=== PATIENT | female | born 1955 | race Caucasian/White ===

== ENCOUNTER → 2017-08-20 | Outpatient (CLI) | payer OTHER ==
[~2017-08-20] MED LIST: ASP325T PO; ASPI-875 PO; DEXL60CA PO; DIGO250T96 PO; DRON400T2 PO; HYDR-34 PO; LOSA50TA6 PO; METO100T5 PO; METO50TA7 PO; NAPR220C11 PO; NITR-65 PO; PANT40SU PO; PNT40TEC PO; RIVA20TA2 PO; VNL75T PO
== END ==
LOC: CARD 08:35
PROVIDERS: ATTEND Physician Assistant
DX: I48.0 Paroxysmal atrial fibrillation (principal); I65.23 Occlusion and stenosis of bilateral carotid arteries; I25.10 Atherosclerotic heart disease of native coronary artery without angina pectoris; I10 Essential (primary) hypertension
CPT/HCPCS: 93306

== ENCOUNTER 2018-04-15 06:48 | Day surgery (SDC) | payer OTHER ==
[~2018-04-15] VITALS: Ht 167.6 cm; Wt 79.4 kg
[2018-04-15] VITALS (14 sets, daily range): BP systolic 114–137; BP diastolic 61–96
[2018-04-15] MEDS ORDERED: NS IV 1000 ML 1,000 ML ONE (06:55)
[2018-04-15] MEDS ORDERED: LIDOCAINE 2% VISCOUS 15 ML UDC ONE (06:55)
[2018-04-15] MEDS ORDERED: NS IV 1000 ML 1,000 ML IV SCH (07:03)
--- NOTE | 2018-04-15 07:22 | Diagnostic Imaging Report ---
INDICATION: Preoperative evaluation prior to echocardiogram and electrical cardioversion. Portable upright AP view of the chest is obtained. Comparison is made to study of 01/29/2014. FINDINGS: Heart size and pulmonary vascularity are within normal limits, and the lungs are clear, bilaterally. IMPRESSION: Unremarkable chest. Dictated by: Dictated on workstation # [id number]
[2018-04-15 07:34] LABS: HEMOGLOBIN 13.3 G/DL (11.5-16.0); MEAN PLATELET VOLUME 9.7 FL (7.4-10.4); RED BLOOD COUNT 3.94 10^6/uL (4.35-5.85); RED CELL DISTRIBUTION WIDTH 12.4 % (10.0-14.5); WHITE BLOOD COUNT 4.5 10^3/uL (4.3-11.0)
[2018-04-15 07:47] LABS: INR 1.2 (0.8-1.4); PROTHROMBIN TIME PATIENT 15.3 SEC (12.2-14.7)
[2018-04-15] MEDS ORDERED: APIX5TAB PO (07:48)
[2018-04-15] MEDS ORDERED: METO100T6 PO (07:48)
[2018-04-15 07:56] LABS: ALBUMIN 4.1 GM/DL (3.2-4.5); BILIRUBIN,TOTAL 0.6 MG/DL (0.1-1.0); CALCIUM 9.1 MG/DL (8.5-10.1); CREATININE SERUM 1.08 MG/DL (0.60-1.30); POTASSIUM 3.6 MMOL/L (3.6-5.0); TOTAL PROTEIN 6.4 GM/DL (6.4-8.2)
[2018-04-15 07:56] LABS: CLARITY,URINE CLEAR; COLOR,URINE YELLOW; GLUCOSE, URINE (UA) NEGATIVE (NEGATIVE); KETONES,URINE 1+ (NEGATIVE); LEUKOCYTE ESTERASE ,URINE 2+ (NEGATIVE); NITRITE,URINE POSITIVE (NEGATIVE); PH,URINE 5 (5-9); PROTEIN,URINE 3+ (NEGATIVE); UROBILINOGEN,URINE 1 MG/DL (NORMAL)
[2018-04-15 08:08] LABS: BACTERIA,URINE FEW /HPF; BILIRUBIN,URINE 2+ (NEGATIVE)
[2018-04-15] MEDS ORDERED: proPOfol 200 MG/20 ML (DIPRIVAN) VIAL IV ONE ×2 (08:08→08:10)
[2018-04-15] MEDS ORDERED: MIDAZOLAM 2 MG/2 ML (VERSED) VIAL ONE (08:08)
--- NOTE | 2018-04-15 08:09 | Cardiac Procedure Note-CS/ASA ---
Pre-Procedure Note Pre-Op Procedure Note H&P Reviewed The H&P was reviewed, patient examined and no changes noted. Date H&P Reviewed: Apr 15, 2018 Time H&P Reviewed: 08:08 Conscious Sedation Pre-Proced Time Reviewed: 08:08 ASA Class: 3 Airway Mallampati Classification: (torres martinez appropriate class) I. II. III, IV Lungs Heart ASA score ASA 1: a normal healthy patient ASA 2: a patient with a mild systemic disease (mid diabetes, controlled hypertension, obesity x ASA 3: a patient with a severe systemic disease that limits activity (angina , COPD, prior Myocardial infarction) ASA 4: a patient with an incapacitating disease that is a constant threat to life (CHF, renal failure) ASA 5: a moribund patient not expected to survive 24 hrs. (ruptured aneurysm) ASA 6: a declared brain patient whose organs are being harvested. For emergent operations, add the letter E after the classification Grade 3 Sedation Plan: Analgesia, Amnesia, Plan communicated to team members, Discussed options with patient/fam, Discussed risks with patient/fam Note The patient is an appropriate candidate to undergo the planned procedure, sedation, and anesthesia. The patient immediately re-assessed prior to indication. GLENNY GUTIERREZ MD Apr 15, 2018 08:08
--- NOTE | 2018-04-15 08:43 | Cardioversion ---
Cardioversion PROCEDURE PHYSICIAN: Glenny Verduzco DATE OF PROCEDURE: 04/15/18 DIRECT EXTERNAL ELECTRICAL CARDIOVERSION: Indications: Atrial Fibrillation Preoperative diagnoses: Atrial Fibrillation Postoperative diagnosis: Sinus rhythm, Successful Electrical Cardioversion Anesthesia: By Anesthesia services Complications: None Procedure Details: The patient was brought the clinical lab clerk after informed consent was taken, all the risks and complications were explained including the risk of stroke. Electrical cardioversion was carried out with anesthesia support with propofol. 200 joules of synchronized shock was delivered through external patches which promptly restored sinus rhythm. The patient tolerated the procedure well. Conclusions: Successful cardioversion Final Diagnosis: Atrial Fibrillation Hypertension Hyperlipidemia Palpitations GLENNY VERDUZCO MD Apr 15, 2018 08:43
--- NOTE | 2018-04-15 08:44 | Anesthesia-Procedure Note ---
Procedures/Interventions Procedure Start/Stop/Diagnosis Date of Procedure: Apr 15, 2018 Start Time: 08:14 Referring Physician: rossana Preprocedural Diagnosis: a fib Stop Time: 08:24 ZENY/Cardioversion Anesthesia Type: MAC ASA Class: 2 Medications Versed 2 mg total and Propofol 50 mg IV total for ZENY/Cardioversion Monitors and Equipment: Continuous EKG, End Tidal CO2 FAUSTO GAN CRNA Apr 15, 2018 08:44
[2018-04-15] MEDS ORDERED: LIDOCAINE 2% VISCOUS 15 ML UDC PO ONE (09:15)
--- OUTSIDE RECORDS SUMMARY | 2018-04-15 13:40 | XMS REPORT | Continuity of Care Document ---
Author Author [facility] Organization [facility] Address Unknown Phone Unavailable Allergies Active Description Code Type Severity Reaction Onset Reported/Identified Relationship to Patient Clinical Status Yes lisinopril [id number] Drug Allergy Unknown COUGH 01/29/2014 Medications Medication Packaging Start Date Stop Date Route Dosage Sig VENLAFAXINE HCL ER 12/29/2016 Oral VENLAFAXINE HCL ER 02/24/2018 Oral Problems Date Dx Coded Attending Type Code Diagnosis Diagnosed By 09/19/2010 Ot V57.21 09/19/2010 Ot V58.49 10/30/2012 Ot 276.8 HYPOPOTASSEMIA 10/30/2012 Ot 311 DEPRESSIVE DISORDER NEC 10/30/2012 Ot 401.9 HYPERTENSION NOS 10/30/2012 Ot 427.31 ATRIAL FIBRILLATION 10/30/2012 Ot 530.81 ESOPHAGEAL REFLUX 10/30/2012 Ot 785.1 PALPITATIONS 11/16/2012 Ot 427.31 ATRIAL FIBRILLATION 12/02/2012 Ot 311 DEPRESSIVE DISORDER NEC 12/02/2012 Ot 401.9 HYPERTENSION NOS 12/02/2012 Ot 414.01 CORONARY ATHEROSCLEROSIS OF [place] CORON 12/02/2012 Ot 427.31 ATRIAL FIBRILLATION 12/02/2012 Ot 785.0 TACHYCARDIA NOS 12/02/2012 Ot 785.1 PALPITATIONS 12/02/2012 Ot 786.59 CHEST PAIN NEC 12/02/2012 Ot V58.66 LONG-TERM ( CURRENT) USE OF ASPIRIN 12/02/2012 Ot V58.69 OTH MED,LT, CURRENT USE 12/30/2012 YURI BARRY Ot 327.23 OBSTRUCTIVE SLEEP APNEA (ADULT) (PEDIATR 02/08/2013 Ot 427.31 ATRIAL FIBRILLATION 02/08/2013 Ot 785.1 PALPITATIONS 03/14/2013 XAVI STEWART MD Ot 530.11 REFLUX ESOPHAGITIS 03/14/2013 XAVI STEWART MD Ot 535.40 OTH SPECIFIED GASTRITIS,W/O MENTION OF H 03/14/2013 XAVI STEWART MD Ot 553.3 DIAPHRAGMATIC HERNIA 03/14/2013 TERRY ROUSE, XAVI Ot V12.79 PERSONAL HISTORY OTH SPEC DIGESTIVE SYST 03/14/2013 TERRY ROUSE, XAVI Ot V67.09 SURGERY FOLLOW-UP, OTHER SURGERY 11/01/2013 ROWENA ROUSE, RC Corrales Ot 311 DEPRESSIVE DISORDER NEC 11/01/2013 ROWENA ROUSE, RC [place] Ot 401.9 HYPERTENSION NOS 11/01/2013 ROWENA ROUSE, RC [place] Ot 427.31 ATRIAL FIBRILLATION 11/01/2013 ROWENA ROUSE, RC [place] Ot 717.40 DERANG LAT MENISCUS NOS 11/01/2013 ROWENA ROUSE, RC [place] Ot 717.7 CHONDROMALACIA PATELLAE 11/01/2013 ROWENA ROUSE, RC [place]es Ot 733.92 CHONDROMALACIA 11/01/2013 ROWENA ROUSE, RC [place] Ot V57.1 PHYSICAL THERAPY NEC 11/01/2013 ROWENA ROUSE, RC [place] Ot V74.8 SCREEN-BACTERIAL DIS NEC 01/29/2014 RANDAL DO, TRICIA K Ot 276.51 DEHYDRATION 01/29/2014 RANDAL DO, TRICIA K Ot 276.9 ELECTROLYT/FLUID DIS NEC 01/29/2014 RANDAL DO, TRICIA K Ot 311 DEPRESSIVE DISORDER NEC 01/29/2014 RANDAL DO, TRICIA K Ot 401.9 HYPERTENSION NOS 01/29/2014 RANDAL DO, TRICIA K Ot 427.31 ATRIAL FIBRILLATION 01/29/2014 RANDAL DO, TRICIA K Ot 530.81 ESOPHAGEAL REFLUX 01/29/2014 RANDAL DO, TRICIA K Ot 599.0 URIN TRACT INFECTION NOS 01/29/2014 RANDAL DO, TRICIA K Ot 780.79 OTH MALAISE FATIGUE 09/18/2014 ROWENA ROUSE, RC [place] Ot 719.66 09/18/2014 ROWENA ROUSE, RC [place] Ot V45.89 09/18/2014 ROWENA ROUSE, RC [place] Ot V57.1 09/24/2014 ROWENA ROUSE, RC [place] Ot 719.66 09/24/2014 ROWENA ROUSE, RC [place] Ot V45.89 09/24/2014 ROWENA ROUSE, RC [place] Ot V57.1 10/11/2014 ROWENA ROUSE, RC [place] Ot 719.66 JOINT SYMPTOM NEC-L/LEG 10/11/2014 ROWENA ROUSE, RC [place]es Ot V45.89 POSTSURGICAL STATES NEC 10/11/2014 ROWENA ROUSE, CR [place] Ot V57.1 PHYSICAL THERAPY NEC 12/21/2014 Ot 427.31 12/21/2014 Ot 427.31 12/21/2014 Ot 785.1 12/21/2014 TERRY ROUSE, XAVI Ot V72.84 12/21/2014 BRENDA ROUSE, GLENNY Rodriguez Ot 285.9 12/21/2014 MAXIMO ROUSE, MARIA ISABEL [place] Ot 401.9 12/21/2014 ROWENA ROUSE, RC [place] Ot 717.3 12/21/2014 ROWENA ROUSE, RC [place] Ot V72.84 12/21/2014 ROSA M PA, BENITA K Ot 278.00 12/21/2014 ROSA M PA, BENITA K Ot 327.23 12/21/2014 ROSA M PA, BENITA K Ot 401.9 12/21/2014 ROSA M PA, BENITA K Ot 414.00 12/21/2014 ROSA M PA, BENITA K Ot 427.31 01/18/2015 BRENDA ORUSE, GLENNY J Ot 278.00 01/18/2015 BRENDA ROUSE, GLENNY J Ot 401.9 01/18/2015 BRENDA ROUSE, GLENNY Rodriguez Ot 414.00 01/18/2015 BRENDA ROUSE, GLENNY J Ot 427.69 01/18/2015 BRENDA ROUSE, GLENNY Rodriguez Ot 578.9 05/01/2015 Ot 427.31 05/01/2015 Ot 427.31 05/01/2015 Ot 785.1 05/01/2015 TERRY ROUSE, XAVI Ot V72.84 05/01/2015 BRENDA ROUSE, GLENNY Rodriguez Ot 285.9 05/01/2015 MAXIMO ROUSE, MARIA ISABEL P Ot 401.9 05/01/2015 ROWENA ROUSE, RC [place] Ot 717.3 05/01/2015 ROWENA ROUSE, RC [place] Ot V72.84 05/01/2015 ROSA M PA, BENITA K Ot 278.00 05/01/2015 ROSA M PA, BENITA K Ot 327.23 05/01/2015 ROSA M PA, BENITA K Ot 401.9 05/01/2015 GAUDENCIO-JUANJO PA, BENITA K Ot 414.00 05/01/2015 ROSA M PA, BENITA K Ot 427.31 05/01/2015 BRENDA ROUSE, GLENNY Rodriguez Ot 278.00 05/01/2015 BRENDA ROUSE, GLENNY Rodriguez Ot 401.9 05/01/2015 BRENDA ROUSE, GLENNY J Ot 414.00 05/01/2015 BRENDA ROUSE, GLENNY Rodriguez Ot 427.69 05/01/2015 BRENDA ROUSE, GLENNY Rodriguez Ot 578.9 10/02/2015 Ot 427.31 10/02/2015 Ot 427.31 10/02/2015 Ot 785.1 10/02/2015 TERRY ROUSE, TAKAAKI Ot V72.84 10/02/2015 BRENDA ROUSE, GLENNY Rodriguez Ot 285.9 10/02/2015 MAXIMO ROUSE, MARIA ISABEL P Ot 401.9 10/02/2015 ROWENA ROUSE, RC P Ot 717.3 10/02/2015 ROWENA ROUSE, RC P Ot V72.84 10/02/2015 ROSA M PA, BENITA K Ot 278.00 10/02/2015 ROSA M PA, BENITA K Ot 327.23 10/02/2015 ROSA M PA, BENITA K Ot 401.9 10/02/2015 ROSA M PA, BENITA K Ot 414.00 10/02/2015 ROSA M PA, BENITA K Ot 427.31 10/02/2015 BRENDA ROUSE, GLENNY Rodriguez Ot 278.00 10/02/2015 BRENDA ROUSE, GLENNY Rodriguez Ot 401.9 10/02/2015 BRENDA ROUSE, GLENNY Rodriguez Ot 414.00 10/02/2015 BRENDA ROUSE, GLENNY Rodriguez Ot 427.69 10/02/2015 BRENDA ROUSE, GLENNY Rodriguez Ot 578.9 10/02/2015 BRENDA ROUSE, GLENNY Rodriguez Ot E66.9 OBESITY, UNSPECIFIED 10/02/2015 GLENNY GUTIERREZ MD Ot E78.5 HYPERLIPIDEMIA, UNSPECIFIED 10/02/2015 GLENNY GUTIERREZ MD Ot G47.33 OBSTRUCTIVE SLEEP APNEA (ADULT) (PEDIATR 10/02/2015 GLENNY GUTIERREZ MD Ot I10 ESSENTIAL (PRIMARY) HYPERTENSION 10/02/2015 GLENNY GUTIERREZ MD Ot I25.10 ATHSCL HEART DISEASE OF [place] CORONARY 10/02/2015 GLENNY GUTIERREZ MD Ot I48.0 PAROXYSMAL ATRIAL FIBRILLATION 10/02/2015 GLENNY GUTIERREZ MD Ot I49.3 VENTRICULAR PREMATURE DEPOLARIZATION 10/02/2015 GLENNY GUTIERREZ MD Ot Z68.35 BODY MASS INDEX (BMI) 35.0-35.9, ADULT 10/02/2015 GLENNY GUTIERREZ MD Ot Z79.899 OTHER MCC (CURRENT) DRUG THERAPY 10/18/2015 Ot 427.31 10/18/2015 Ot 427.31 10/18/2015 Ot 785.1 10/18/2015 TERRY ROUSE, XAVI Ot V72.84 10/18/2015 GLENNY GUTIERREZ MD Ot 285.9 10/18/2015 MAXIMO ROUSE, MARIA ISABEL [place] Ot 401.9 10/18/2015 ROWENA ROUSE, RC P Ot 717.3 10/18/2015 ROWENA ROUSE, RC [place] Ot V72.84 10/18/2015 ROSA M PA, BENITA K Ot 278.00 10/18/2015 ROSA M PA, BENITA K Ot 327.23 10/18/2015 ROSA M PA, BENITA K Ot 401.9 10/18/2015 ROSA M NGUYEN, BENITA K Ot 414.00 10/18/2015 ROSA M NGUYEN, BENITA K Ot 427.31 10/18/2015 GLENNY GUTIERREZ MD Ot 278.00 10/18/2015 BRENDA ROUSE, GLENNY Rodriguez Ot 401.9 10/18/2015 BRENDA ROUSE, GLENNY Rodriguez Ot 414.00 10/18/2015 GLENNY GUTIERREZ MD Ot 427.69 10/18/2015 GLENNY GUTIERREZ MD Ot 578.9 12/20/2015 GLENNY GUTIERREZ MD Ot E66.9 OBESITY, UNSPECIFIED 12/20/2015 GLENNY GUTIERREZ MD Ot E78.5 HYPERLIPIDEMIA, UNSPECIFIED 12/20/2015 GLENNY GUTIERREZ MD Ot G47.33 OBSTRUCTIVE SLEEP APNEA (ADULT) (PEDIATR 12/20/2015 GLENNY GUTIERREZ MD Ot I10 ESSENTIAL (PRIMARY) HYPERTENSION 12/20/2015 GLENNY GUTIERREZ MD Ot I25.10 ATHSCL HEART DISEASE OF [place] CORONARY 12/20/2015 GLENNY GUTIERREZ MD Ot I48.0 PAROXYSMAL ATRIAL FIBRILLATION 12/20/2015 GLENNY GUTIERREZ MD Ot I49.3 VENTRICULAR PREMATURE DEPOLARIZATION 12/20/2015 GLENNY GUTIERREZ MD Ot Z68.35 BODY MASS INDEX (BMI) 35.0-35.9, ADULT 12/20/2015 GLENNY GUTIERREZ MD, Ot Z79.899 OTHER MCC (CURRENT) DRUG THERAPY 02/14/2016 XAVI STEWART MD Ot R10.9 UNSPECIFIED ABDOMINAL PAIN 02/14/2016 XAVI STEWART MD Ot R11.2 NAUSEA WITH VOMITING, UNSPECIFIED 03/05/2016 XAVI STEWART MD Ot R10.9 UNSPECIFIED ABDOMINAL PAIN 03/05/2016 XAVI STEWART MD Ot R11.2 NAUSEA WITH VOMITING, UNSPECIFIED 08/13/2017 RC GUAMAN MD Ot M54.16 RADICULOPATHY, LUMBAR REGION 08/13/2017 XAVI STEWART MD Ot R10.9 UNSPECIFIED ABDOMINAL PAIN 08/13/2017 XAVI STEWART MD Ot R11.2 NAUSEA WITH VOMITING, UNSPECIFIED 08/17/2017 RC GUAMAN MD Ot M54.16 RADICULOPATHY, LUMBAR REGION 08/17/2017 XAVI STEWART MD Ot R10.9 UNSPECIFIED ABDOMINAL PAIN 08/17/2017 XAVI STEWART MD Ot R11.2 NAUSEA WITH VOMITING, UNSPECIFIED 08/19/2017 Ot 427.31 ATRIAL FIBRILLATION 08/19/2017 Ot 427.31 ATRIAL FIBRILLATION 08/19/2017 Ot 785.1 PALPITATIONS 08/19/2017 XAVI STEWART MD Ot V72.84 EXAM PRE-OPERATIVE NOS 08/19/2017 GLENNY GUTIERREZ MD Ot 285.9 ANEMIA NOS 08/19/2017 MARIA ISABEL MARSH MD Ot 401.9 HYPERTENSION NOS 08/19/2017 RC GUAMAN MD Ot 717.3 DERANG MED MENISCUS NEC 08/19/2017 RC GUAMAN MD Ot V72.84 EXAM PRE-OPERATIVE NOS 08/19/2017 BENITA MCADAMS Ot 278.00 OBESITY, NOS 08/19/2017 BENITA MCADAMS Ot 327.23 OBSTRUCTIVE SLEEP APNEA (ADULT) (PEDIATR 08/19/2017 BENITA MCADAMS Ot 401.9 HYPERTENSION NOS 08/19/2017 BENITA MCADAMS Ot 414.00 CORON ATHEROSCLER NOS TYPE VESSEL, NATIV 08/19/2017 BENITA MCADAMS Ot 427.31 ATRIAL FIBRILLATION 08/19/2017 GLENNY GUTIERREZ MD Ot 278.00 OBESITY, NOS 08/19/2017 GLENNY GUTIERREZ MD Ot 401.9 HYPERTENSION NOS 08/19/2017 GLENNY GUTIERREZ MD Ot 414.00 CORON ATHEROSCLER NOS TYPE VESSEL, NATIV 08/19/2017 GLENNY GUTIERREZ MD Ot 427.69 PREMATURE BEATS NEC 08/19/2017 GLENNY GUTIERREZ MD Ot 578.9 GASTROINTEST HEMORR NOS 09/16/2017 BENITA MCADAMS Ot I10 ESSENTIAL (PRIMARY) HYPERTENSION 09/16/2017 BENITA MCADAMS Ot I25.10 ATHSCL HEART DISEASE OF [place] CORONARY 09/16/2017 BENITA MCADAMS Ot I48.0 PAROXYSMAL ATRIAL FIBRILLATION 09/16/2017 BENITA MCADAMS Ot I65.23 OCCLUSION AND STENOSIS OF [place]AL [place] Procedures There is no data. Results There is no data. Encounters ACCT No. Visit Date/Time Discharge Status Pt. Type Provider Facility Loc./Unit Complaint [id number] 03/28/2018 10:40:00 03/28/2018 23:59:59 CLS Preadmit DALLAS GONZALEZ APRN [facility] RAD SCREENING MAMMOGRAM [id number] 08/20/2017 08:35:00 08/20/2017 23:59:59 CLS Outpatient BENITA MCADAMS [facility] CARD AF [id number] 02/12/2016 09:43:00 02/12/2016 23:59:59 CLS Outpatient XAVI STEWART MD [facility] LAB ABDOMINAL PAIN,NAUSEA, VOMITING [id number] 10/18/2015 13:30:00 10/18/2015 23:59:59 CLS Outpatient RC GUAMAN MD [facility] RAD LUMBAR RADICULOPATHY [id number] 10/02/2015 12:47:00 10/02/2015 13:57:00 DIS Outpatient GLENNY GUTIERREZ MD [facility] PAROXYSMAL ATRIAL FIBRILLATION [id number] 12/21/2014 11:05:00 12/21/2014 23:59:59 CLS Outpatient GLENNY GUTIERREZ MD [facility] CARD HX OF A-FIB,HTN [id number] 10/11/2014 13:34:00 10/11/2014 14:53:00 DIS Outpatient RC GUAMAN MD [facility] REHAB LT KNEE WEAKNESS S/ P CHONDROPLASTY [id number] 01/29/2014 11:10:00 01/29/2014 14:35:00 DIS Emergency TRICIA TEE DO [facility] ER WEAKNESS [id number] 11/01/2013 09:00:00 11/01/2013 23:59:59 CLS Outpatient BENITA MCADAMS [facility] LAB AF,CORONARY ARTERY DI,HTN,SHAYNE,OBESITY [id number] 11/01/2013 08:56:00 11/01/2013 15:11:00 DIS Outpatient RC GUAMAN MD [facility] LET KNEE TORN MENISCUS [id number] 10/26/2013 09:49:00 10/26/2013 23:59:59 CLS Outpatient RC GUAMAN MD [facility] PREOP LEFT TORN MEDIAL MENISCUS [id number] 07/24/2013 08:31:00 07/24/2013 23:59:59 CLS Outpatient MARIA ISABEL MARSH MD [facility] LAB HTN [id number] 04/19/2013 11:44:00 04/19/2013 23:59:59 CLS Outpatient GLENNY GUTIERREZ MD [facility] LAB ANEMIA [id number] 03/14/2013 08:46:00 03/14/2013 12:00:00 DIS Outpatient XAVI STEWART MD [facility] POST PROCEDURE CHECK FOR GI BLEED CLIP PLACEMENT [id number] 03/13/2013 15:28:00 03/13/2013 23:59:59 CLS Outpatient XAVI STEWART MD [facility] PREOP GERD [id number] 12/29/2012 20:07:00 12/30/2012 06:35:00 DIS Outpatient YURI BARRY [facility] SLEEP SHAYNE,SNORING [id number] 12/21/2014 11:05:00 Document Registration [id number] 02/09/2013 09:00:00 Document Registration [id number] 11/30/2012 03:10:00 Document Registration [id number] 11/16/2012 14:13:00 Document Registration [id number] 11/16/2012 02:09:00 Document Registration [id number] 11/10/2012 08:46:00 Document Registration [id number] 10/29/2012 00:45:00 Document Registration [id number] 12/21/2014 11:05:48 ACT Document Registration [id number] 12/24/2017 16:43:06 Document Registration
--- OUTSIDE RECORDS SUMMARY | 2018-04-15 13:40 | XMS REPORT | Clinical Summary ---
Author Author [facility] Organization [facility] Address Unknown Phone Unavailable Care Team Providers Care Belt Maker Name Role Phone Xuan Bradley MD PCP Source Comments Some departments are not documenting in the electronic medical record. If you do not see the information that you expected, contact Release of Information in the Health Information Management department at [phone] for further assistance in locating additional records.[facility] Allergies Active Allergy Reactions Severity Noted Date Comments Lisinopril COUGH 07/14/2013 Current Medications Prescription Sig. Disp. Refills Start End Date Status Date metoprolol XL (TOPROL XL) Take 100 mg by mouth Active 100 mg tablet twice daily. dronedarone (MULTAQ) 400 Take 400 mg by mouth Active mg tablet twice daily with meals. aspirin 325 mg tablet Take 325 mg by mouth Active daily. dexlansoprazole (+) Take 60 mg by mouth Active (DEXILANT) 60 mg capsule daily. venlafaxine XR (EFFEXOR Take 75 mg by mouth Active XR) 75 mg capsule daily. acetaminophen SR(+) Take 1,300 mg by mouth as Active (TYLENOL ARTHRITIS) 650 Needed. mg tablet losartan (COZAAR) 50 mg Take 1 Tab by mouth 30 Tab 6 07/14/20 Active tablet daily. 13 Active Problems Problem Noted Date Atrial fibrillation (HCC) 06/29/2013 Overview: 11/17/12 - ([facility]): LV normal size with mild left ventricular hypertrophy at the base of the septum giving the septum a sigmoid shape. EF 65%. Left atrium dilated. No clot or thrombus were seen. Mild mitral and tricuspid regurgitation. Est PAP 15mmHg. 11/30/12 - Admitted to [facility] ([place], [place]) for palpitations and chest pressure. Noted to be in a-fib with RVR. Multaq started. 12/01/12 - Lexiscan Stress Test ([facility]): Mild reversible ischemia at the inferior wall, inferolateral wall. 12/02/12 - Heart Cath: Mild irregularity at the distal right coronary artery. No obstructive disease in the coronary system. Hypertension 06/29/2013 GI bleed 06/29/2013 Overview: -February 2013 -Evaluated by GI. Noted to have AVM in duodenum. -'Acute AVM's were clipped' per pt ([place]) Obstructive sleep apnea on CPAP 06/29/2013 Family History Medical History Relation Name Comments Hypertension Brother Hypertension Brother Obesity Brother Hypertension Brother Obesity Brother Diabetes Father Atrial Fibrillation Mother Relation Name Status Comments Brother Alive Brother Alive Brother Alive Father Alive Mother Social History Tobacco Use Types Packs/Day Years Used Date Never Smoker Smokeless Tobacco: Never Used Alcohol Use Drinks/Week oz/Week Comments Yes 1 Standard 0.5 drinks or equivalent Sex Assigned at Date Recorded Not on file Last Filed Vital Signs Vital Sign Reading Time Taken Blood Pressure 146/108 06/29/2013 9:29 AM CDT Pulse 61 06/29/2013 9:28 AM CDT Temperature - - Respiratory Rate - - Oxygen Saturation - - Inhaled Oxygen - - Concentration Weight 98 kg (216 lb) 06/29/2013 9:28 AM CDT Height 167.6 cm (5' 6") 06/29/2013 9:28 AM CDT Body Mass Index 34.86 06/29/2013 9:28 AM CDT Plan of Treatment Health Maintenance Due Date Last Done Comments HEPATITIS C SCREENING 1953 PHYSICAL (COMPREHENSIVE) 1960 EXAM PERTUSSIS VACCINE 1964 HIV SCREENING 1968 TETANUS VACCINE 1970 CERVICAL CANCER SCREENING 1983 BREAST CANCER SCREENING 1993 COLORECTAL CANCER 2003 SCREENING SHINGLES RECOMBINANT 2003 VACCINE (1 of 2) INFLUENZA VACCINE 05/30/2018 Results Not on filefrom Last 3 Months
--- NOTE | 2018-04-15 13:57 | Anesthesia-General Post-Op ---
MAC Post Op Complications Complications None Follow Up Care/Instructions Patient Instructions None needed. Anesthesiology Discharge Order Discharge Order Patient is doing well, no complaints, stable vital signs, no apparent adverse anesthesia problems. No complications reported per nursing. FAUSTO GAN CRNA Apr 15, 2018 13:57
== END 2018-04-15 11:05 | disposition home or self-care (01) ==
LOC: CATH 06:48 → SURG 09:07 → CATH 11:05
PROVIDERS: ATTEND Internal Medicine Cardiovascular Disease
DX: I48.0 Paroxysmal atrial fibrillation (principal); I10 Essential (primary) hypertension; E78.5 Hyperlipidemia, unspecified; R00.2 Palpitations; I49.3 Ventricular premature depolarization; I65.23 Occlusion and stenosis of bilateral carotid arteries; G47.30 Sleep apnea, unspecified; I25.10 Atherosclerotic heart disease of native coronary artery without angina pectoris; I49.1 Atrial premature depolarization; Z79.01 Long term (current) use of anticoagulants; Z79.899 Other long term (current) drug therapy
CPT/HCPCS: 36415; 71045; 80053; 80061; 81000; 85027; 85610; 85730; 87077; 87081; 87088; 87186; 92960; 93005; 93312; 93320; 93325

== ENCOUNTER → 2018-05-11 | Outpatient (CLI) | payer OTHER ==
[~2018-05-11] VITALS: Ht 167.6 cm; Wt 78.9 kg
[~2018-05-11] MED LIST changes: +APIX5TAB PO; +CATHETER FLUSH 10 ML SYR IV PRN; +METO100T6 PO; +REGADENOSON 0.4 MG/5 ML SYR (LEXISCAN) IV ONE
[2018-05-11 14:05] VITALS: BP 130/86
--- NOTE | 2018-05-11 21:12 | STRESS TEST ---
DATE OF SERVICE: 05/11/2018 LEXISCAN MYOVIEW STRESS TEST REPORT Baseline heart rate is 58, baseline blood pressure 156/97. Baseline EKG is sinus rhythm with no ischemic changes. SUMMARY: The patient was injected with 10.51 mCi of technetium-99 Myoview and the resting images were obtained. Then, the patient received 0.4 mg of Lexiscan followed by 30.2 mCi of technetium-99 Myoview. Throughout the test, there were no EKG changes. The resting and stress images were reviewed and compared in the short axis, horizontal long axis, and vertical long axis views. Review of the images showed good radiotracer uptake with no significant ischemia or infarction. SSS is 1, SDS 2, TID value of 1.1. On the gated images, the left ventricle appeared to be in normal size with normal contractility. Calculated ejection fraction 76%. CONCLUSION: 1. The patient tolerated Lexiscan well. 2. No significant ischemia or infarction on SPECT images. 3. Normal left ventricular size with normal contractility. Calculated ejection fraction 76%. Job ID: [id number] DocumentID: [id number] Dictated Date: 05/11/2018 16:55:30 Wrecking Car Driver Date: 05/11/2018 21:12:00 Dictated By: GLENNY GUTIERREZ MD
== END ==
LOC: CARD 11:51
PROVIDERS: ATTEND Internal Medicine Cardiovascular Disease
DX: I25.10 Atherosclerotic heart disease of native coronary artery without angina pectoris (principal); R06.09 Other forms of dyspnea; I10 Essential (primary) hypertension; I49.3 Ventricular premature depolarization; R00.0 Tachycardia, unspecified
CPT/HCPCS: 78452; 93017

== ENCOUNTER → 2018-05-25 | Outpatient (CLI) | payer OTHER ==
[~2018-05-25] MED LIST changes: -CATHETER FLUSH 10 ML SYR IV PRN; -REGADENOSON 0.4 MG/5 ML SYR (LEXISCAN) IV ONE
--- NOTE | 2018-05-25 12:28 | Diagnostic Imaging Report ---
EXAMINATION: Ultrasound of the right breast. INDICATION: Abnormal mammogram. FINDINGS: The screening mammogram performed on 04/22/2018 noted a small ovoid density in the right breast at posterior depth at the nipple line. The diagnostic mammogram performed earlier today failed to show any sign of malignancy. On this exam, there is no discrete solid or cystic mass evident. I suspect that the density in question is related to fibroglandular tissue alone. Even so, it may prove worthwhile to have a short-term (6 month) followup mammogram of the right breast for continued evaluation. IMPRESSION: There is no evidence for malignancy. Recommendations as above. ACR BI-RADS Category 3: Probably benign findings. Result letter will be mailed to the patient. Note: At least 10% of breast cancer is not imaged by mammography. Dictated by: Dictated on workstation # [id number]
--- NOTE | 2018-05-25 18:13 | Diagnostic Imaging Report ---
Unilateral diagnostic right mammogram. INDICATION: Abnormal screening mammogram. The current study was also evaluated with a Computer Aided Detection (CAD) system. FINDINGS: The recent screening mammogram performed on 04/22/2018 noted a small ovoid density in the right breast at posterior depth on the MLO view. There is no corresponding abnormality seen on the craniocaudad view. The compression view of this area in the CC projection shows the density in question to be less conspicuous. This finding is still difficult to visualize on the repeat craniocaudad view or on the true lateral view. I suspect it is related to superimposition of the fibroglandular tissue. Even so, I would recommend that ultrasound be performed for further study. IMPRESSION: There is no evidence for malignancy. Recommendations as above. ACR BI-RADS Category 0: Incomplete. (Needs additional imaging evaluation). Result letter will be mailed to the patient. Note: At least 10% of breast cancer is not imaged by mammography. Dictated by: Dictated on workstation # [id number]
== END ==
LOC: RAD 09:14
PROVIDERS: ATTEND Surgery
DX: R92.8 Other abnormal and inconclusive findings on diagnostic imaging of breast (principal)

== ENCOUNTER → 2018-11-25 | Outpatient (CLI) | payer MEDICARE, OTHER ==
--- NOTE | 2018-11-25 10:20 | Diagnostic Imaging Report ---
PROCEDURE: US Gallbladder. TECHNIQUE: Multiple real-time grayscale images were obtained over the right upper quadrant in various projections. INDICATION: Right upper quadrant pain. The liver measures 15 cm in size. No discrete liver mass is identified. The portal vein is patent and shows normal directional flow. The gallbladder contains small stones. No wall thickening is identified. Extrahepatic bile duct is borderline in size measuring 6-7 mm. Pancreas was obscured by bowel gas. The right kidney is unremarkable. No calculi or hydronephrosis is seen. There is no ascites. IMPRESSION: 1. Cholelithiasis without evidence of acute cholecystitis. Dictated by: Dictated on workstation # [id number]
== END ==
LOC: RAD 09:07
PROVIDERS: ATTEND Surgery
DX: K80.20 Calculus of gallbladder without cholecystitis without obstruction (principal)
CPT/HCPCS: 76705

== ENCOUNTER → 2018-11-28 | Outpatient (CLI) | payer MEDICARE, OTHER ==
--- NOTE | 2018-11-28 20:00 | Diagnostic Imaging Report ---
INDICATION: Six-month follow-up right breast density. Correlation is made with prior mammograms from 04/22/2018, 01/20/2017 as well as 05/25/2018. Unilateral right 2-D and 3-D diagnostic mammography was performed with Computer-Aided Detection (CAD) system including CC, MLO, and ML views. FINDINGS: Area of density noted in the posterior right breast on the MLO is less prominent on today's study. This may have represented fibroglandular tissue. No discrete mass is seen. There are benign calcifications in the right breast. Right axilla is unremarkable. IMPRESSION: Stable right mammogram. Additional follow-up in six months is recommended to confirm stability. ACR BI-RADS Category 3: Probably benign findings. Result letter will be mailed to the patient. Note: At least 10% of breast cancer is not imaged by mammography. Dictated by: Dictated on workstation # [id number]
== END ==
LOC: RAD 13:22
PROVIDERS: ATTEND Internal Medicine
DX: R92.2 Inconclusive mammogram (principal)

== ENCOUNTER 2019-06-24 16:08 | Inpatient (IN) | payer MEDICARE, OTHER ==
[2019-06-24] VITALS (8 sets, daily range): BP systolic 119–159; BP diastolic 69–90
[~2019-06-24] VITALS: Ht 167.7 cm; Wt 81.4 kg
[2019-06-24] MEDS ORDERED: NS IV 1000 ML 1,000 ML IV SCH (16:57)
[2019-06-24] MEDS ORDERED: diphenhydrAMINE 50 MG/ML INJ (BENADRYL) IV PRN (17:00)
[2019-06-24] MEDS ORDERED: diphenhydrAMINE 50 MG/ML INJ (BENADRYL) IVP PRN (17:00)
[2019-06-24] MEDS ORDERED: ONDANSETRON 4 MG/2 ML (SDV) Z0FRAN IV PRN (17:00)
[2019-06-24] MEDS ORDERED: METOCLOPRAMIDE INJ 10 MG/2 ML (REGLAN) IV PRN (17:00)
[2019-06-24] MEDS ORDERED: PIPERACILLIN/TAZOBACTAM (BULK) 4.5 GM in NS (IVPB) 100 ML IV SCH (17:00)
[2019-06-24] MEDS ORDERED: NALOXONE 0.4 MG/ML 1 ML (NARCAN) VIAL IV PRN (17:00)
[2019-06-24] MEDS ORDERED: HYDROmorphone PF INJECTION 10 MG in NS (IVPB) 50 ML IV SCH (17:00)
[2019-06-24] MEDS ORDERED: 1/2 NS W/KCL 20 MEQ/L 1,000 ML IV ONE (18:04)
[2019-06-24] MEDS ORDERED: NS (IVPB) 50 ML ONE (19:23)
[2019-06-24] MEDS ORDERED: HYDROmorphone 2 MG/ML VIAL (DILAUDID) ONE (19:23)
[2019-06-24] MEDS ORDERED: ONDANSETRON 4 MG/2 ML (SDV) Z0FRAN ONE (19:49)
[2019-06-24] MEDS ORDERED: WATER (STERILE) FOR INJECTION 20 ML ONE (20:09)
[2019-06-24] MEDS ORDERED: MEROPENEM 1000 MG (MERREM) VIAL IV ONE (20:09)
[2019-06-24] MEDS ORDERED: PIPERACILLIN/TAZO 4.5 GM VIAL (ZOSYN) IV ONE (20:20)
[2019-06-24] MEDS ORDERED: NS (IVPB) 100 ML ONE (20:20)
[2019-06-24] MEDS: CEFEPIME INJECTION 2,000 MG in WATER (STERILE) FOR INJECTION 20 ML IV SCH (20:51)
[2019-06-24] MEDS: PANTOPRAZOLE 40 MG (PROTONIX) VIAL IV SCH (20:51)
[2019-06-24] MEDS: 1/2 NS W/KCL 20 MEQ/L 1,000 ML IV SCH (20:52)
[2019-06-24] MEDS: RT-ALBUTEROL SULF 2.5 MG/3 ML PRE-MIX VIAL INH SCH ×2 (21:21→21:30)
[2019-06-25] VITALS (19 sets, daily range): BP systolic 101–145; BP diastolic 52–80
--- NOTE | 2019-06-25 00:43 | NUR ---
This RN called EICU to report pt complaint of headache 02/06. New order received at this time.
[2019-06-25] MEDS ORDERED: ACETAMINOPHEN 325 MG TABLET ONE (00:50)
[2019-06-25] MEDS ORDERED: ACETAMINOPHEN 325 MG TABLET PO ONE (01:15)
[2019-06-25] MEDS: RT-ALBUTEROL SULF 2.5 MG/3 ML PRE-MIX VIAL INH SCH ×2 (01:43→07:07)
[2019-06-25] MEDS: 1/2 NS W/KCL 20 MEQ/L 1,000 ML IV SCH ×5 (03:03→23:29)
[2019-06-25 03:42] LABS: BASOPHILS % (AUTO) 0 % (0-10); EOSINOPHILS # (AUTO) 0.1 10^3/uL (0.0-0.3); EOSINOPHILS % (AUTO) 2 % (0-10); HEMATOCRIT 37 % (35-52); HEMOGLOBIN 12.2 G/DL (11.5-16.0); LYMPHOCYTES # (AUTO) 1.1 X 10^3 (1.0-4.0); LYMPHOCYTES % (AUTO) 18 % (12-44); MEAN CORPUSCULAR HEMOGLOBIN 32 PG (25-34); MEAN CORPUSCULAR HGB CONC 33 G/DL (32-36); MEAN CORPUSCULAR VOLUME 97 FL (80-99); MONOCYTES # (AUTO) 0.6 X 10^3 (0.0-1.0); MONOCYTES % (AUTO) 9 % (0-12); NEUTROPHILS # (AUTO) 4.3 X 10^3 (1.8-7.8); NEUTROPHILS % (AUTO) 71 % (42-75); PLATELET COUNT 183 10^3/uL (130-400); RED CELL DISTRIBUTION WIDTH 12.5 % (10.0-14.5)
[2019-06-25 04:09] LABS: ALBUMIN 3.5 GM/DL (3.2-4.5); BILIRUBIN,TOTAL 0.8 MG/DL (0.1-1.0); CALCIUM 8.5 MG/DL (8.5-10.1); CREATININE SERUM 0.96 MG/DL (0.60-1.30); TOTAL PROTEIN 5.7 GM/DL (6.4-8.2)
[2019-06-25] MEDS: POTASSIUM CL 10MEQ/50ML IVPB 50 ML IV SCH (05:50)
[2019-06-25] MEDS: MAGNESIUM 1 GM/100 ML IVPB 100 ML IV SCH ×3 (05:50→07:55)
[2019-06-25] MEDS: KCL 20 MEQ TAB (K-DUR) PO SCH (05:50)
[2019-06-25] MEDS ORDERED: HOLD METFORMIN - RECEIVED CONTRAST 20 ML VIAL IV SCH (06:00)
[2019-06-25] MEDS ORDERED: IOHEXOL 350 MG/ML 100 ML (OMNIPAQUE 350) VIAL IV ONE (06:00)
[2019-06-25] MEDS ORDERED: NS 100 ML (IVPB) BAG IV ONE (06:00)
[2019-06-25] MEDS ORDERED: PIPERACILLIN/TAZO 4.5 GM VIAL (ZOSYN) IV ONE (06:07)
[2019-06-25] MEDS ORDERED: NS (IVPB) 100 ML ONE (06:08)
[2019-06-25] MEDS: PIPERACILLIN/TAZOBACTAM (BULK) 4.5 GM in NS (IVPB) 100 ML IV SCH ×3 (06:24→23:12)
[2019-06-25] MEDS: SENNA W/DOCUSATE (SENOKOT S) TABLET PO SCH (07:56)
[2019-06-25] MEDS: PANTOPRAZOLE 40 MG (PROTONIX) VIAL IV SCH ×2 (07:56→20:21)
[2019-06-25] MEDS: CEFEPIME INJECTION 2,000 MG in WATER (STERILE) FOR INJECTION 20 ML IV SCH ×2 (07:56→20:21)
--- NOTE | 2019-06-25 08:02 | Diagnostic Imaging Report ---
CHEST 1 VIEW, AP/PA ONLY Indication: Dyspnea Comparison: 04/15/2018 Findings: No focal airspace disease in the visualized lungs. Please note that the posterior lower lobes are poorly evaluated by portable radiography. No pleural effusion or pneumothorax. Normal cardiomediastinal silhouette. A loop recorder device overlies the left lower hemithorax. Impression: 1. No acute cardiopulmonary process by portable radiography. Dictated by: Dictated on workstation # [id number]
--- NOTE | 2019-06-25 08:43 | Diagnostic Imaging Report ---
PROCEDURE: CT chest with contrast, CT abdomen and pelvis with and without contrast. TECHNIQUE: Pre and post intravenous contrast axial imaging of the abdomen and pelvis and post contrast axial imaging of the chest were performed. Auto Exposure Controls were utilized during the CT exam to meet ALARA standards for radiation dose reduction. INDICATION: Acute cholecystitis, chest pain. COMPARISON: None available. FINDINGS: CT CHEST: Thyroid is normal. No supraclavicular or axillary lymphadenopathy. No mediastinal, hilar or juxtaphrenic lymphadenopathy. The heart is normal in size without pericardial effusion. No pleural effusion or pneumothorax. No endoluminal nodule within the trachea. No pulmonary mass or consolidation. There are few scattered areas of linear atelectasis within the bilateral basilar segments. No concerning pulmonary nodule. No worrisome focal osseous lesions. CT ABDOMEN AND PELVIS: No free intraperitoneal air or loculated fluid collections. Gallbladder is distended with pericholecystic fluid and gallbladder wall thickening present. The common bile duct is normal in caliber with smooth distal tapering. There are a few scattered hypodensities throughout the liver that are most compatible with cysts but too small to fully characterize. No concerning focal hepatic lesion. The spleen is normal. No peripancreatic inflammatory changes to indicate pancreatitis. No peripancreatic fluid collection. Adrenals are normal. Kidneys enhance symmetrically without mass lesion or obstruction. Urinary bladder is normal. Trace free pelvic fluid. No adnexal mass. Colonic diverticulosis without diverticulitis. No features of appendicitis. Normal caliber abdominal aorta. Status post gastric reduction surgery. No concerning focal osseous lesions. IMPRESSION: CHEST: 1. No acute process in the chest. 2. No features of intrathoracic neoplasm. ABDOMEN AND PELVIS: 1. CT features are most compatible with acute cholecystitis. No biliary duct dilatation. 2. There is a trace amount of free fluid within the pelvis. No loculated collections to indicate abscess. 3. No imaging features of acute pancreatitis. Dictated by: Dictated on workstation # [id number]
[2019-06-25] MEDS ORDERED: RT-ALBUTEROL SULF 2.5 MG/3 ML PRE-MIX VIAL INH SCH ×2 (09:00→10:00)
[2019-06-25] MEDS ORDERED: meTOprolol SUCCINATE 100 MG (TOPROL XL) TAB PO NR (09:30)
[2019-06-25] MEDS ORDERED: VENlafaxine XR 75 MG (EFFEXOR XR) CAP PO NR (09:30)
[2019-06-25] MEDS ORDERED: METOCLOPRAMIDE INJ 10 MG/2 ML (REGLAN) ONE (09:33)
--- NOTE | 2019-06-25 09:33 | Consultation-Cardiology ---
HPI-Cardiology Cardiology Consultation Date of Consultation 06/25/19 Date of Admission Time Seen by Provider: 09:28 Indication: Acute pancreatitis HPI 63-year-old lady with history of gallstone pancreatitis, had an episode in the past, returned with abdominal pain, nausea and vomiting, diagnosed with pancreatitis. She denied any chest pain, no shortness of breath, still having nausea and vomiting and headache. No syncope or near syncopal episode. He has extensive cardiac history as described below Home Medications & Allergies Allergies: Coded Allergies: lisinopril (Verified Allergy, Unknown, COUGH, 01/29/14) Home Medication List Reviewed: Yes USP-Rlasbm-Bhegkh Hx Patient Social History Marital Status: Recent Foreign Travel: No Immunizations Up To Date Tetanus Booster (TDap): More than 5yrs Date of Influenza Vaccine: May 29, 2019 Past Medical History Discussed below Family Medical History Family Medical Hx Noncontributory to her current condition Review of Systems-General Review of Systems Constitutional: see HPI, malaise, weakness EENTM: see HPI, no symptoms reported Respiratory: see HPI; No cough, No dyspnea on exertion, No hemoptysis, No orthopnea, No phlegm, No short of breath, No stridor, No wheezing, No other Cardiovascular: see HPI; No chest pain, No edema, No Hx of Intervention, No palpitations, No syncope, No vascular heart diseas, No other Gastrointestinal: see HPI, abdominal pain, nausea, vomiting Genitourinary: no symptoms reported, see HPI Musculoskeletal: no symptoms reported, see HPI Skin: no symptoms reported, see HPI Psychiatric/Neurological: No Symptoms Reported, See HPI Reviewed Test Results Reviewed Test Results Lab Laboratory Tests Test 06/25/19 03:02 Range/Units White Blood Count 6.0 4.3-11.0 10^3/uL Red Blood Count 3.80 L 4.35-5.85 10^6/uL Hemoglobin 12.2 11.5-16.0 G/DL Hematocrit 37 35-52 % Mean Corpuscular Volume 97 80-99 FL Mean Corpuscular Hemoglobin 32 25-34 PG Mean Corpuscular Hemoglobin Concent 33 32-36 G/DL Red Cell Distribution Width 12.5 10.0-14.5 % Platelet Count 183 130-400 10^3/uL Mean Platelet Volume 10.0 7.4-10.4 FL Neutrophils (%) (Auto) 71 42-75 % Lymphocytes (%) (Auto) 18 12-44 % Monocytes (%) (Auto) 9 0-12 % Eosinophils (%) (Auto) 2 0-10 % Basophils (%) (Auto) 0 0-10 % Neutrophils # (Auto) 4.3 1.8-7.8 X 10^3 Lymphocytes # (Auto) 1.1 1.0-4.0 X 10^3 Monocytes # (Auto) 0.6 0.0-1.0 X 10^3 Eosinophils # (Auto) 0.1 0.0-0.3 10^3/uL Basophils # (Auto) 0.0 0.0-0.1 10^3/uL Sodium Level 141 135-145 MMOL/L Potassium Level 4.0 3.6-5.0 MMOL/L Chloride Level 107 98-107 MMOL/L Carbon Dioxide Level 20 L 21-32 MMOL/L Anion Gap 14 5-14 MMOL/L Blood Urea Nitrogen 13 7-18 MG/DL Creatinine 0.96 0.60-1.30 MG/DL Estimat Glomerular Filtration Rate 58 BUN/Creatinine Ratio 14 Glucose Level 95 70-105 MG/DL Calcium Level 8.5 8.5-10.1 MG/DL Corrected Calcium 8.9 8.5-10.1 MG/DL Magnesium Level 1.7 1.6-2.4 MG/DL Total Bilirubin 0.8 0.1-1.0 MG/DL Aspartate Amino Transf (AST/SGOT) 46 H 5-34 U/L Alanine Aminotransferase (ALT/SGPT) 44 0-55 U/L Alkaline Phosphatase 71 40-136 U/L Total Protein 5.7 L 6.4-8.2 GM/DL Albumin 3.5 3.2-4.5 GM/DL Amylase Level 2193 H 25-125 U/L Lipase 3520 H 8-78 U/L Physical Exam Physical Exam Vital Signs Vital Signs - First Documented 06/24/19 06/24/19 06/24/19 06/24/19 16:14 16:15 16:41 17:00 Temp 36.7 Pulse 86 Resp 19 B/P (MAP) 140/90 (107) Pulse Ox 95 O2 Delivery Room Air Capillary Refill : Less Than 3 Seconds Height, Weight, BMI Height: 5'6.00" Weight: 174lbs. 0.0oz. [id number]; 28.44 BMI Method:Stated General Appearance: No Apparent Distress, WD/WN Eyes: Bilateral Eye Normal Inspection, Bilateral Eye PERRL, Bilateral Eye EOMI HEENT: PERRL/EOMI, TMs Normal, Normal ENT Inspection, Pharynx Normal, Moist Mucous Membranes Neck: Full Range of Motion, Normal Inspection, Non Tender, Supple, Carotid Bruit Respiratory: Chest Non Tender, Normal Breath Sounds, No Accessory Muscle Use, No Respiratory Distress Cardiovascular: Regular Rate, Rhythm, No Edema, No Gallop, No JVD, No Murmur, Normal Peripheral Pulses Gastrointestinal: Normal Bowel Sounds, No Organomegaly, No Pulsatile Mass, Non Tender, Soft Back: Normal Inspection, No CVA Tenderness, No Vertebral Tenderness Extremity: Normal Capillary Refill, Normal Inspection, Normal Range of Motion, Non Tender, No Calf Tenderness, No Pedal Edema Neurologic/Psychiatric: Alert, Oriented x3, No Motor/Sensory Deficits, Normal Mood/Affect Skin: Normal Color, Warm/Dry Lymphatic: No Adenopathy A/P-Cardiology Admission Diagnosis Acute pancreatitis Paroxysmal atrial fibrillation Hypertension Acute cholecystitis Assessment/Plan Acute pancreatitis, recurrent, known to have history of gallstone pancreatitis, discussed with Dr. Servin and possible surgery in the next 2 days. Currently her lab values are improving and amylase and lipase are improving Paroxysmal atrial fibrillation, currently sinus rhythm, has been maintained on Multaq, I will hold it for now and hold all oral anticoagulation medications. ZENY was done on April 15, 2018 which showed dilated left atrium and left atrial appendage showed no clot or thrombus with trace mitral regurgitation normal left ventricular size and function. Continue to monitor Cardiac catheterization done in November 2012 reporting mild irregular to have the distal right coronary artery otherwise no significant obstructive disease. Most recent stress test done April 2018 revealed no ischemia or infarct. Continue to monitor. [id number] score is 2, yearly risk of stroke without oral anticoagulation is 2.2 percent. Discussed the possibility of having closure device. Seen by Dr. Seymour, recommended conservative management at this point. Hold Eliquis for now Hx of GI bleed- patient has had AVM clipped in February 2014 by GI in [place]. History of premature ventricular contractions, premature atrial contractions, and palpitations, maintained on Toprol XL, I will start Lopressor IV and monitor Hypertension, controlled, continue to monitor blood pressure Intolerance to MELISSA inhibitor with cough. Mild bilateral carotid stenosis, ultrasound was done in November 2018, continue to monitor. Depression Obesity, status post gastric sleeve. Patient continues to lose weight Obstructive sleep apnea using C-PAP Clinical Quality Measures DVT/VTE Risk/Contraindication: Risk Factor Score Per Nursin RFS Level Per Nursing on Admit: 1=Low/No VTE PPX GLENNY GUTIERREZ MD Jun 25, 2019 09:33
[2019-06-25] MEDS: METOCLOPRAMIDE INJ 10 MG/2 ML (REGLAN) IVP PRN ×2 (09:42→14:45)
[2019-06-25] MEDS ORDERED: DILTIAZEM 25 MG/5 ML INJ (CARDIZEM) VIAL IVP ONE (09:45)
[2019-06-25] MEDS ORDERED: DILTIAZEM 25 MG/5 ML INJ (CARDIZEM) VIAL IVP NR (09:45)
[2019-06-25] MEDS ORDERED: DILTIAZEM IV FOR DRIP 125 MG in NS (IVPB) 100 ML IV SCH (09:45)
--- NOTE | 2019-06-25 09:55 | Progress Note ---
Subjective Date Seen by a Provider: Jun 25, 2019 Time Seen by a Provider: 09:00 Subjective/Events-last exam doing better today. pain controlled. no fever/chills. tolerating clears however has had episode nausea. total bilirubin normal. pancreatic enzymes trending down. Objective Exam Vital Signs Date Time Temp Pulse Resp B/P (MAP) Pulse Ox O2 Delivery O2 Flow Rate FiO2 06/25/19 09:00 96 15 95 Room Air 06/25/19 08:00 Room Air 06/25/19 08:00 94 12 121/65 (83) 93 Room Air 06/25/19 07:07 96 Room Air 06/25/19 07:00 71 06/25/19 07:00 71 11 118/72 (87) 92 Room Air 06/25/19 07:00 36.9 06/25/19 07:00 13 06/25/19 06:00 74 15 121/70 (87) 95 Room Air 06/25/19 05:00 80 13 126/72 (90) 92 Room Air 06/25/19 04:00 75 12 131/74 (93) 92 Room Air 06/25/19 04:00 36.6 06/25/19 04:00 Room Air 06/25/19 03:00 86 16 126/80 (95) 97 Room Air 06/25/19 02:00 82 12 119/62 (81) 95 Room Air 06/25/19 01:43 95 Room Air 06/25/19 01:00 76 06/25/19 01:00 76 12 145/80 (101) 96 Room Air 06/25/19 00:00 78 18 131/72 (91) 95 Room Air 06/25/19 00:00 36.9 06/25/19 00:00 Room Air 06/24/19 23:00 79 13 144/76 (98) 95 Room Air 06/24/19 22:00 92 16 119/69 (86) 91 Room Air 06/24/19 21:24 98 Room Air 06/24/19 21:00 80 17 143/77 (99) 95 Room Air 06/24/19 21:00 13 06/24/19 20:00 84 15 142/84 (103) 96 Room Air 06/24/19 20:00 Room Air 06/24/19 19:55 36.6 06/24/19 19:00 69 15 159/88 (111) 98 Room Air 06/24/19 19:00 69 06/24/19 18:48 98 Room Air 06/24/19 18:00 96 19 143/77 (99) 90 Room Air 06/24/19 17:00 36.7 90 14 131/79 (96) 94 Room Air 06/24/19 16:41 95 Room Air 06/24/19 16:15 142 19 140/90 (107) Room Air 06/24/19 16:14 86 I & O 06/25/19 07:00 Intake Total 1590 ml Output Total 700 ml Balance 890 ml Capillary Refill : Less Than 3 Seconds General Appearance: No Apparent Distress HEENT: PERRL/EOMI Neck: Full Range of Motion Respiratory: Chest Non Tender, Lungs Clear, Normal Breath Sounds Cardiovascular: Regular Rate, Rhythm Gastrointestinal: normal bowel sounds, soft, tenderness Extremity: Normal Capillary Refill Neurologic/Psychiatric: Alert, Oriented x3 Skin: Normal Color Lymphatic: No Adenopathy Results Lab Laboratory Tests 06/25/19 03:02: White Blood Count 6.0, Red Blood Count 3.80L, Hemoglobin 12.2, Hematocrit 37, Mean Corpuscular Volume 97, Mean Corpuscular Hemoglobin 32, Mean Corpuscular Hemoglobin Concent 33, Red Cell Distribution Width 12.5, Platelet Count 183, Mean Platelet Volume 10.0, Neutrophils (%) (Auto) 71, Lymphocytes (%) (Auto) 18, Monocytes (%) (Auto) 9, Eosinophils (%) (Auto) 2, Basophils (%) (Auto) 0, Neutrophils # (Auto) 4.3, Lymphocytes # (Auto) 1.1, Monocytes # (Auto) 0.6, Eosinophils # (Auto) 0.1, Basophils # (Auto) 0.0, Sodium Level 141, Potassium Level 4.0, Chloride Level 107, Carbon Dioxide Level 20L, Anion Gap 14, Blood Urea Nitrogen 13, Creatinine 0.96, Estimat Glomerular Filtration Rate 58, BUN/Creatinine Ratio 14, Glucose Level 95, Calcium Level 8.5, Corrected Calcium 8.9, Magnesium Level 1.7, Total Bilirubin 0.8, Aspartate Amino Transf (AST/SGOT) 46H, Alanine Aminotransferase (ALT/SGPT) 44, Alkaline Phosphatase 71, Total Protein 5.7L, Albumin 3.5, Amylase Level 2193H, Lipase 3520H Assessment/Plan Assessment/Plan Assess & Plan/Chief Complaint acute calculous cholecystitis with previous gallstone pancreatitis. follow clinical exam, LFT's and pancreatic enzymes. once improving and less symptomatic will proceed with laparoscopic cholecystectomy. clear liquids and IV abx for now. Clinical Quality Measures DVT/VTE Risk/Contraindication: Risk Factor Score Per Nursin RFS Level Per Nursing on Admit: 1=Low/No VTE PPX XAVI STEWART MD Jun 25, 2019 09:55
[2019-06-25] MEDS ORDERED: RT-ALBUTEROL SULF 2.5 MG/3 ML PRE-MIX VIAL INH PRN (10:00)
[2019-06-25] MEDS: DILTIAZEM IV FOR DRIP 125 MG in NS (IVPB) 100 ML IV SCH ×2 (10:17→17:15)
--- NOTE | 2019-06-25 12:31 | Consultation - Hospitalist ---
HPI History of Present Illness: HPI/Chief Complaint The patient is a 63-year-old white female known to me who initially presented with nausea and right upper quadrant abdominal pain. She was noted to have cholecystitis which resolved now. Surgery been recommended that she was trying to put it off. She did relatively well with a few mild attacks since that time until Wednesday when she had a more significant attack with nausea and vomiting. It lasted for several hours she had another mild attack on and a more significant one on Wednesday with persistence epigastric and right upper quadrant pain more intense while she was in [facility]. She presented to the emergency room there where her lipase level was elevated and other labs were relatively unremarkable. She preferred to be under surgeon's care understandably and presented to our hospital for direct admission and treatment of presumed gallstone related pancreatitis. She has no other significant risk factors for pancreatitis with occasional social alcohol consumption. She had no past history of pancreatitis or known common duct obstruction. Date Seen 06/25/19 Attending Physician Claus Servin MD PCP Brian Joseph MD Referring Physician Claus SERVIN Date of Admission Jun 24, 2019 at 16:08 Home Medications & Allergies Home Medications Reviewed patient Home Medication Reconciliation performed by pharmacy medication reconciliations air analysis technician and/or nursing. Patients Allergies have been reviewed. Allergies Allergies Coded Allergies lisinopril (Verified Allergy, Unknown, COUGH, 01/29/14) Past Djzymfj-Glazvd-Ckbovj Hx Past Med/Social Hx: Reviewed and Corrections made Patient Social History Marrital Status: Recent Foreign Travel: No Contact w/other who traveled: No Immunizations Up To Date Tetanus Booster (TDap): More than 5yrs Date of Influenza Vaccine: May 29, 2019 Past Medical History Reproductive: No Sexually Transmitted Disease: No HIV/AIDS: No Female Reproductive Disorders: Denies Gastrointestinal: Hiatal Hernia Psychosocial: Depression Adverse Reaction to Blood [place]: No Review of Systems Constitutional: no symptoms reported, see HPI Respiratory: No cough, No dyspnea on exertion, No hemoptysis, No orthopnea, No phlegm, No short of breath, No stridor, No wheezing, No other Gastrointestinal: RUQ (And epigastric abdominal pain that does not reportedly radiate to her back.), nausea (No hematemesis melena reported), vomiting : No Physical Exam Physical Exam Vital Signs Vital Signs - First Documented 06/24/19 06/24/19 06/24/19 06/24/19 16:14 16:15 16:41 17:00 Temp 36.7 Pulse 86 Resp 19 B/P (MAP) 140/90 (107) Pulse Ox 95 O2 Delivery Room Air Capillary Refill : Less Than 3 Seconds Height, Weight, BMI Height: 5'6.00" Weight: 174lbs. 0.0oz. [id number]; 28.44 BMI Method:Stated General Appearance: No Apparent Distress Eyes: Bilateral Eye Normal Inspection, Bilateral Eye PERRL, Bilateral Eye EOMI HEENT: PERRL/EOMI Neck: Full Range of Motion Respiratory: Chest Non Tender, Lungs Clear, Normal Breath Sounds, No Accessory Muscle Use, No Respiratory Distress Cardiovascular: Regular Rate, Rhythm, No Edema, No Gallop, No JVD, No Murmur Gastrointestinal: Normal Bowel Sounds, No Organomegaly, No Pulsatile Mass, So ft, Other (Minimal epigastric tenderness noted no abdominal distention noted.) Back: Normal Inspection, No CVA Tenderness, No Vertebral Tenderness Extremity: Normal Capillary Refill Neurologic/Psychiatric: Alert, Oriented x3 Skin: Normal Color Lymphatic: No Adenopathy Results Results/Procedures Labs Laboratory Tests 06/25/19 03:02 Patient resulted labs reviewed. Assessment/Plan Assessment and Plan Assess & Plan/Chief Complaint A/P 1. Acute pancreatitis presumably gallstone related. Thus far no red flag symptoms for severe he as complication CT results pending. With continued improvement Dr. SERVIN is planning tentative laparoscopic cholecystectomy on Wednesday. 2. Paroxysmal atrial fibrillation Multaq per Dr. Gayle being held for now with switch to IV beta agustín therapy patient in sinus rhythm. Clinical Quality Measures DVT/VTE Risk/Contraindication: Risk Factor Score Per Nursin RFS Level Per Nursing on Admit: 1=Low/No VTE PPX BRIAN JOSEPH MD Jun 25, 2019 12:30
[2019-06-25] MEDS: meTOprolol 5 MG/5 ML (LOPRESSOR) VIAL IV SCH ×3 (12:32→23:12)
[2019-06-25] MEDS ORDERED: ONDANSETRON 4 MG/2 ML (SDV) Z0FRAN IVP PRN (17:00)
[2019-06-25] MEDS ORDERED: PROMETHAZINE INJ 25 MG/ML (PHENERGAN) AMP IVP PRN (18:15)
[2019-06-25] MEDS: POLYETHYLENE GLYCOL 17 GM (MIRALAX) PACK PO SCH (20:21)
[2019-06-25] MEDS ORDERED: POLYETHYLENE GLYCOL 17 GM (MIRALAX) PACK PO SCH (21:00)
--- NOTE | 2019-06-25 23:58 | NUR ---
AT APPROX 2330 THIS PATIENT CONVERTED BACK TO NORMAL SINUS RHYTHM. EKG DONE TO VERIFY. E-ICU NOTIFIED. CARDIZEM TURNED DOWN TO 5 AT THIS TIME PER E-ICU. PATIENT VOICES NO COMPLAINTS AND IS RESTING COMFORTABLY IN BED.
[2019-06-26] VITALS (16 sets, daily range): BP systolic 108–153; BP diastolic 55–80
[2019-06-26 03:38] LABS: BASOPHILS % (AUTO) 0 % (0-10); EOSINOPHILS # (AUTO) 0.3 10^3/uL (0.0-0.3); EOSINOPHILS % (AUTO) 6 % (0-10); HEMATOCRIT 33 % (35-52); LYMPHOCYTES # (AUTO) 1.4 X 10^3 (1.0-4.0); LYMPHOCYTES % (AUTO) 23 % (12-44); MEAN CORPUSCULAR HEMOGLOBIN 32 PG (25-34); MEAN CORPUSCULAR HGB CONC 33 G/DL (32-36); MEAN CORPUSCULAR VOLUME 97 FL (80-99); MEAN PLATELET VOLUME 9.5 FL (7.4-10.4); MONOCYTES # (AUTO) 0.6 X 10^3 (0.0-1.0); MONOCYTES % (AUTO) 10 % (0-12); NEUTROPHILS # (AUTO) 3.6 X 10^3 (1.8-7.8); NEUTROPHILS % (AUTO) 61 % (42-75); PLATELET COUNT 174 10^3/uL (130-400); RED CELL DISTRIBUTION WIDTH 12.6 % (10.0-14.5); WHITE BLOOD COUNT 5.9 10^3/uL (4.3-11.0)
[2019-06-26 04:09] LABS: AMYLASE 480 U/L (25-125); BUN/CREATININE RATIO 5; CALCIUM 8.4 MG/DL (8.5-10.1); CARBON DIOXIDE 21 MMOL/L (21-32); CHLORIDE 110 MMOL/L (98-107); CREATININE SERUM 0.84 MG/DL (0.60-1.30); GFR ESTIMATED > 60; GLUCOSE 91 MG/DL (70-105); LIPASE 199 U/L (8-78); MAGNESIUM 1.9 MG/DL (1.6-2.4); PHOSPHORUS 2.3 MG/DL (2.3-4.7); POTASSIUM 4.3 MMOL/L (3.6-5.0); SODIUM 141 MMOL/L (135-145)
[2019-06-26] MEDS: 1/2 NS W/KCL 20 MEQ/L 1,000 ML IV SCH ×3 (05:45→21:24)
--- NOTE | 2019-06-26 06:39 | HISTORY AND PHYSICAL ---
DATE OF SERVICE: 06/24/2019 ATTENDING PRIMARY CARE PHYSICIAN: Dr. Joseph. HISTORY OF PRESENT ILLNESS: The patient is a 63-year-old female known to us. 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 She had remembered having darker stools in the past several weeks beforehand as well. She underwent a repeat EGD in 02/2013, which did not show any recurrent bleeding. She has been on Protonix from a standpoint of peptic ulcer disease as well as gastroesophageal reflux disease. She is also status post gastric sleeve resection in 2016. She has had crampy abdominal pain in the right upper abdominal quadrant, which we knew about and this was worked up and she was found to have gallstones; however, she wanted to wait to have surgery later. She was in [place], [place] and developed pain in the right upper abdominal quadrant as well as epigastric region. She was evaluated and found to have elevated pancreatic enzymes as well as ductal dilatation, which may indicate a gallstone pancreatitis or previous gallstone pancreatitis. She wanted to be transferred closer to home for further definitive care. Since being hydrated and placed on IV antibiotics, she has been stable and has felt better. She does not report any nausea or vomiting at this time. She just has mild to moderate discomfort in epigastric as well as right upper abdominal quadrant. No peritoneal signs. PAST MEDICAL HISTORY: Atrial fibrillation, hypertension, gastroesophageal reflux disease, paroxysmal ventricular contractions. PAST SURGICAL HISTORY: section in 79, tubal ligation in 82, right bunionectomy in 10, right thumb arthroplasty in 10, gastric sleeve resection in 16 and LINQ placement in 18. ALLERGIES: No known drug allergies. MEDICATIONS: Eliquis 5 mg b.i.d., Multaq 400 mg b.i.d., metoprolol 100 mg b.i.d., Effexor XR 75 mg daily, Protonix 40 mg daily, iron 325 mg daily. SOCIAL HISTORY: Negative smoke, social alcohol. FAMILY HISTORY: Father, diabetes, hypertension. Brother hypertension. VITAL SIGNS: Stable. She is currently afebrile with a systolic blood pressure in the 140s. REVIEW OF SYSTEMS: Well-nourished female currently in no acute distress. She is not experiencing any shortness of breath or difficulty breathing. No chest pain, palpitations, diaphoresis. Previous episodes of nausea; however, no vomiting. She does have associated pain in the epigastric region as well as a right upper abdominal quadrant. No diarrhea, constipation, no red blood per rectum, no dark tarry stools. No fever, chills, no recent inadvertent weight loss. All other review of systems negative. PHYSICAL EXAMINATION: CHEST: Clear. Good breath sounds bilaterally. HEART: Regular, no murmurs. EXTREMITIES: No lower extremity edema, negative Homans sign. HEENT: No scleral icterus. NECK: No cervical lymphadenopathy. ABDOMEN: Soft, nondistended. There is pain in the right upper abdominal quadrant as well as the epigastric region upon deep palpation. There is voluntary guarding, no rebound. SKIN: Warm, dry. ASSESSMENT AND PLAN: A 63-year-old female with acute on chronic calculous cholecystitis as well as current gallstone pancreatitis versus previous gallstone pancreatitis. We will admit her, IV hydrate, keep her n.p.o. and continue with antibiotics with Zosyn to prevent cholangitis. We will repeat an ultrasound to see if any stones identified in the common bile duct versus an MRCP. If a stone was identified in the common bile duct, we will refer her to gastroenterology for an ERCP as well as stone extraction. Once the pancreatitis stranding is improving and she is clinically stable, we will then proceed with a cholecystectomy. We will also consult her primary care physician and flat sorter processor. Job ID: [id number] DocumentID: [id number] Dictated Date: 06/24/2019 14:08:04 Final Application Reviewer Date: 06/24/2019 14:36:28 Dictated By: XAVI STEWART MD [facility]PITALTorrey
[2019-06-26] MEDS: meTOprolol 5 MG/5 ML (LOPRESSOR) VIAL IV SCH ×3 (06:41→20:43)
[2019-06-26] MEDS: PIPERACILLIN/TAZOBACTAM (BULK) 4.5 GM in NS (IVPB) 100 ML IV SCH ×3 (06:41→22:22)
[2019-06-26] MEDS: POTASSIUM CL 10MEQ/50ML IVPB 50 ML IV SCH (06:41)
[2019-06-26] MEDS: VENlafaxine XR 75 MG (EFFEXOR XR) CAP PO SCH (06:41)
[2019-06-26] MEDS: MAGNESIUM 1 GM/100 ML IVPB 100 ML IV SCH (06:42)
[2019-06-26] MEDS: KCL 20 MEQ TAB (K-DUR) PO SCH (06:42)
--- NOTE | 2019-06-26 07:45 | Diagnostic Imaging Report ---
INDICATION: Dyspnea. TECHNIQUE: Frontal view of the chest. COMPARISON: 06/25/2019 FINDINGS: Lung volumes are normal. No focal consolidation is seen. There is no pleural effusion or pneumothorax. The cardiomediastinal silhouette is normal in size and contour. arch support technician device is noted. IMPRESSION: No acute pulmonary abnormality is seen. Dictated by: Dictated on workstation # [id number]
[2019-06-26] MEDS: SENNA W/DOCUSATE (SENOKOT S) TABLET PO SCH (08:17)
[2019-06-26] MEDS: PANTOPRAZOLE 40 MG (PROTONIX) VIAL IV SCH ×2 (08:17→20:44)
[2019-06-26] MEDS: CEFEPIME INJECTION 2,000 MG in WATER (STERILE) FOR INJECTION 20 ML IV SCH (08:17)
--- NOTE | 2019-06-26 08:22 | Cardiology Progress Note ---
Subjective Date Seen by Provider: Jun 26, 2019 Time Seen by Provider: 08:20 Subjective/Events-last exam Patient is laying down in bed, feeling better. Denied any chest pain Review of Systems General: No Chills, No Night Sweats, No Fatigue, No Malaise, No Appetite, No Other HEENT: No Head Aches, No Visual Changes, No Eye Pain, No Ear Pain, No Dysphasia, No Sinus Congestion, No Post Nasal Drip, No Sore Throat, No Other Pulmonary: No Dyspnea, No Cough, No Pleuritic Chest Pain, No Other Cardiovascular: No: Chest Pain, Palpitations, Orthopnea, Paroxysmal Noc. Dyspnea, Edema, Lt Headedness, Other Objective-Cardiology Exam Last Set of Vital Signs Vital Signs 06/25/19 06/26/19 06/26/19 20:00 06:00 07:06 Temp 37.3 Pulse 73 Resp 6 B/P (MAP) 128/74 (92) Pulse Ox 95 O2 Delivery Room Air Capillary Refill : Less Than 3 Seconds I&O Intake and Output 06/25/19 23:59 Intake Total 3455 ml Output Total 2300 ml Balance 1155 ml Intake Oral 1315 ml IV Total 2140 ml Output Urine Total 2300 ml # Voids 5 General: Alert, Oriented X3, Cooperative HEENT: Atraumatic, PERRLA Neck: Supple, No JVD, No Thyromegaly Lungs: Clear to Auscultation, Normal Air Movement Heart: Regular Rate, Normal S1, Normal S2, No Murmurs Abdomen: Normal Bowel Sounds, Soft, No Tenderness, No Hepatosplenomegaly, No Masses Extremities: No Clubbing, No Cyanosis, No Edema, Normal Pulses, No Tenderness/Swelling Skin: No Rashes, No Breakdown, No Significant Lesion Neuro: Normal Gait, Normal Speech, Strength at 5/5 X4 Ext, Normal Tone, Sensation Intact Psych/Mental Status: Mental Status NL, Mood NL Results Lab Laboratory Tests 06/26/19 03:15 A/P-Cardiology Admission Diagnosis Acute pancreatitis Paroxysmal atrial fibrillation Hypertension Acute cholecystitis Assessment/Plan Acute pancreatitis, recurrent, known to have history of gallstone pancreatitis, discussed with Dr. Servin and possible surgery in the next 2 days. Currently her lab values are improving and amylase and lipase are improving Paroxysmal atrial fibrillation, currently sinus rhythm, has an episode of atrial fibrillation was rapid ventricular response yesterday, she was started on Cardizem drip and Lopressor IV, converted around 11 p.m. last night. Has been in sinus rhythm. Continue to monitor ZENY was done on April 15, 2018 which showed dilated left atrium and left atrial appendage showed no clot or thrombus with trace mitral regurgitation normal left ventricular size and function. Continue to monitor Cardiac catheterization done in November 2012 reporting mild irregular to have the distal right coronary artery otherwise no significant obstructive disease. Most recent stress test done April 2018 revealed no ischemia or infarct. Continue to monitor. [id number] score is 2, yearly risk of stroke without oral anticoagulation is 2.2 percent. Discussed the possibility of having closure device. Seen by Dr. Seymour, recommended conservative management at this point. Hold Eliquis for now Hx of GI bleed- patient has had AVM clipped in February 2014 by GI in [place]. History of premature ventricular contractions, premature atrial contractions, and palpitations, maintained on Toprol XL, continue on IV Lopressor Hypertension, controlled, continue to monitor blood pressure Intolerance to MELISSA inhibitor with cough. Mild bilateral carotid stenosis, ultrasound was done in November 2018, continue to monitor. Depression Obesity, status post gastric sleeve. Patient continues to lose weight Obstructive sleep apnea using C-PAP Clinical Quality Measures DVT/VTE Risk/Contraindication: Risk Factor Score Per Nursin RFS Level Per Nursing on Admit: 1=Low/No VTE PPX GLENNY GUTIERREZ MD Jun 26, 2019 08:22
[2019-06-26] MEDS ORDERED: meTOprolol SUCCINATE 100 MG (TOPROL XL) TAB PO SCH (09:00)
[2019-06-26] MEDS ORDERED: PANT40TA3 PO (11:30)
[2019-06-26] MEDS ORDERED: METO-395 PO (11:30)
[2019-06-26] MEDS ORDERED: VENL75CA PO (11:30)
[2019-06-26] MEDS ORDERED: DRON400T2 PO (11:30)
[2019-06-26] MEDS ORDERED: ACET-1783 PO (11:32)
--- NOTE | 2019-06-26 11:34 | NUR ---
SPOKE WITH THE PT (SHE HAD HER BOTTLES) WELL GOING THRU THE EXT MED HISTORY TO COMPLETE THE MED REC. PT WAS ABLE TO TELL ME HOW/WHEN SHE TAKES ALL HER MEDS AND IT MATCHED THE EXT MED HISTORY. OTC MEDS: APAP ARTHRITIS
--- NOTE | 2019-06-26 12:13 | NUR ---
"RD ASSESSMENT PMHx: afib, HTN, GERD, acute pancreatitis PT INTERACTION: Pt was awake and pleasant during nutrition assessment. Pt states current appetite is poor, and has been since her gallbladder attack. Pt states following a regular diet at home, and has no current issues with chewing/swallowing food at this time. Pt states several recent episodes of nausea and vomiting. Note pt currently on zofran. Pt states some recurrent issues with diarrhea. Note 4 BM recorded today. Note pt current on bowel regimen of senna, miralax. Pt states no recent wt loss. Note unable to determine recent wt hx, per chart review. ABNORMAL NUTRITION-RELATED LAB VALUES: Cl 110 (H); amylase 480 (H); lipase 199 (H); BUN 4 (L); Ca 8.4 (L) Est. kcal needs: 7898-0167 kcal (20-25 kcal/kg) Est. Pro needs: 96-112 g Pro (1.2-1.4 g Pro/kg) PES STATEMENT: Inadequate oral intake (NI-2.1) related to nausea | vomiting | diarrhea as evidenced by pt interview INTERVENTION: Continue with current diet order of Clear Liquid Diet. Advance diet as needed and as medically able. Add Ensure Clear to meals TID. Provides 240 kcal and 8 g Pro per serving. Encouraged pt to eat when able. MONITOR/EVALUATE: PO Intake; Supplement Tolerance; Plan of Care; Hydration Status; Weight Status; Lab Values Samara Headley, MS, RD, LD Ext. 133"
--- NOTE | 2019-06-26 16:21 | Progress Note ---
Subjective Date Seen by a Provider: Jun 26, 2019 Time Seen by a Provider: 15:00 Subjective/Events-last exam doing much better today. tolerating clears. pain controlled. pancreatitis resolving. Objective Exam Vital Signs Date Time Temp Pulse Resp B/P (MAP) Pulse Ox O2 Delivery O2 Flow Rate FiO2 06/26/19 13:00 84 20 153/79 (103) 94 Room Air 06/26/19 12:27 77 06/26/19 12:00 Room Air 06/26/19 12:00 77 21 130/69 (89) 96 Room Air 06/26/19 11:00 79 30 117/65 (82) 97 Room Air 06/26/19 10:00 78 20 114/75 (88) 97 Room Air 06/26/19 09:00 77 8 138/75 (96) Room Air 06/26/19 08:00 Room Air 06/26/19 08:00 87 23 127/73 (91) Room Air 06/26/19 07:06 95 Room Air 06/26/19 07:00 84 06/26/19 07:00 73 17 92 Room Air 06/26/19 06:00 73 6 128/74 (92) 97 Room Air 06/26/19 05:00 74 13 112/66 (81) 92 Room Air 06/26/19 04:00 70 13 115/55 (75) 95 Room Air 06/26/19 04:00 Room Air 06/26/19 03:00 70 11 120/75 (90) 97 Room Air 06/26/19 02:00 67 16 108/61 (77) 96 Room Air 06/26/19 01:02 74 06/26/19 01:00 76 28 117/62 (80) 92 Room Air 06/26/19 00:00 Room Air 06/26/19 00:00 73 12 119/69 (86) 93 Room Air 06/25/19 23:00 76 13 107/64 (78) 98 Room Air 06/25/19 22:00 80 11 116/59 (78) 97 Room Air 06/25/19 21:00 82 17 101/52 (68) 94 Room Air 06/25/19 21:00 13 06/25/19 20:00 84 12 113/61 (78) 98 Room Air 06/25/19 20:00 Room Air 06/25/19 20:00 37.3 1027/19 19:00 85 22 93 Room Air 06/25/19 19:00 77 06/25/19 18:22 94 Room Air 06/25/19 18:00 79 18 95 Room Air 06/25/19 17:15 120 06/25/19 17:00 75 14 110/76 (87) 96 Room Air I & O 06/26/19 07:00 Intake Total 3785 ml Output Total 1600 ml Balance 2185 ml Capillary Refill : Less Than 3 Seconds General Appearance: No Apparent Distress HEENT: PERRL/EOMI Neck: Full Range of Motion Respiratory: Chest Non Tender, Lungs Clear, Normal Breath Sounds Cardiovascular: Regular Rate, Rhythm Gastrointestinal: normal bowel sounds, non tender, soft Extremity: Normal Capillary Refill Neurologic/Psychiatric: Alert, Oriented x3 Skin: Normal Color Lymphatic: No Adenopathy Results Lab Laboratory Tests 06/26/19 03:15: White Blood Count 5.9, Red Blood Count 3.40L, Hemoglobin 11.0L, Hematocrit 33L, Mean Corpuscular Volume 97, Mean Corpuscular Hemoglobin 32, Mean Corpuscular Hemoglobin Concent 33, Red Cell Distribution Width 12.6, Platelet Count 174, Mean Platelet Volume 9.5, Neutrophils (%) (Auto) 61, Lymphocytes (%) (Auto) 23, Monocytes (%) (Auto) 10, Eosinophils (%) (Auto) 6, Basophils (%) (Auto) 0, Neutrophils # (Auto) 3.6, Lymphocytes # (Auto) 1.4, Monocytes # (Auto) 0.6, Eosinophils # (Auto) 0.3, Basophils # (Auto) 0.0, Sodium Level 141, Potassium Level 4.3, Chloride Level 110H, Carbon Dioxide Level 21, Anion Gap 10, Blood Urea Nitrogen 4L, Creatinine 0.84, Estimat Glomerular Filtration Rate > 60, BUN/Creatinine Ratio 5, Glucose Level 91, Calcium Level 8.4L, Phosphorus Level 2.3, Magnesium Level 1.9, Amylase Level 480H, Lipase 199H Microbiology 06/24/19 MRSA Screen - Final, Complete MRSA not isolated Assessment/Plan Assessment/Plan Assess & Plan/Chief Complaint acute calculous cholecystitis with previous gallstone pancreatitis. follow clinical exam, LFT's and pancreatic enzymes. once improving and less symptomatic will proceed with laparoscopic cholecystectomy. clear liquids and IV abx for now. plan for lap guillaume tomorrow. Clinical Quality Measures DVT/VTE Risk/Contraindication: Risk Factor Score Per Nursin RFS Level Per Nursing on Admit: 1=Low/No VTE PPX XAVI STEWART MD Jun 26, 2019 16:21 POS
--- NOTE | 2019-06-26 16:45 | NUR ---
Pt transferred to room 417. Bedside report given to Jaja Ma RN.
[2019-06-26] MEDS: POLYETHYLENE GLYCOL 17 GM (MIRALAX) PACK PO SCH (20:48)
[2019-06-27] VITALS (13 sets, daily range): BP systolic 122–165; BP diastolic 79–92
[2019-06-27] MEDS: meTOprolol 5 MG/5 ML (LOPRESSOR) VIAL IV SCH ×2 (01:07→06:22)
[2019-06-27] MEDS: 1/2 NS W/KCL 20 MEQ/L 1,000 ML IV SCH ×3 (04:03→18:17)
[2019-06-27 05:45] LABS: BASOPHILS % (AUTO) 1 % (0-10); EOSINOPHILS # (AUTO) 0.5 10^3/uL (0.0-0.3); EOSINOPHILS % (AUTO) 8 % (0-10); HEMATOCRIT 35 % (35-52); HEMOGLOBIN 11.6 G/DL (11.5-16.0); LYMPHOCYTES # (AUTO) 1.2 X 10^3 (1.0-4.0); LYMPHOCYTES % (AUTO) 21 % (12-44); MEAN CORPUSCULAR HEMOGLOBIN 31 PG (25-34); MEAN CORPUSCULAR HGB CONC 33 G/DL (32-36); MEAN CORPUSCULAR VOLUME 96 FL (80-99); MEAN PLATELET VOLUME 10.1 FL (7.4-10.4); MONOCYTES # (AUTO) 0.6 X 10^3 (0.0-1.0); MONOCYTES % (AUTO) 11 % (0-12); NEUTROPHILS # (AUTO) 3.3 X 10^3 (1.8-7.8); NEUTROPHILS % (AUTO) 59 % (42-75); PLATELET COUNT 203 10^3/uL (130-400); RED CELL DISTRIBUTION WIDTH 12.7 % (10.0-14.5); WHITE BLOOD COUNT 5.6 10^3/uL (4.3-11.0)
[2019-06-27 05:47] LABS: ALANINE AMINOTRANSFERASE 28 U/L (0-55); ALBUMIN 3.6 GM/DL (3.2-4.5); ALKALINE PHOSPHATASE 66 U/L (40-136); AMYLASE 145 U/L (25-125); BILIRUBIN,TOTAL 0.6 MG/DL (0.1-1.0); BUN/CREATININE RATIO 4; CARBON DIOXIDE 24 MMOL/L (21-32); CHLORIDE 109 MMOL/L (98-107); CREATININE SERUM 0.84 MG/DL (0.60-1.30); GFR ESTIMATED > 60; GLUCOSE 87 MG/DL (70-105); LIPASE 79 U/L (8-78); MAGNESIUM 1.8 MG/DL (1.6-2.4); PHOSPHORUS 2.5 MG/DL (2.3-4.7); SODIUM 143 MMOL/L (135-145)
[2019-06-27] MEDS: POTASSIUM CL 10MEQ/50ML IVPB 50 ML IV SCH (06:02)
[2019-06-27] MEDS: MAGNESIUM 1 GM/100 ML IVPB 100 ML IV SCH (06:02)
[2019-06-27] MEDS: KCL 20 MEQ TAB (K-DUR) PO SCH (06:03)
[2019-06-27] MEDS: PIPERACILLIN/TAZOBACTAM (BULK) 4.5 GM in NS (IVPB) 100 ML IV SCH ×3 (06:22→21:04)
[2019-06-27] MEDS: VENlafaxine XR 75 MG (EFFEXOR XR) CAP PO SCH (06:28)
--- NOTE | 2019-06-27 07:49 | Cardiology Progress Note ---
Subjective Date Seen by Provider: Jun 27, 2019 Time Seen by Provider: 07:46 Subjective/Events-last exam Patient is laying down in bed, feeling better. Abdominal pain is better. No chest pain. Review of Systems General: No Chills, No Night Sweats, No Fatigue, No Malaise, No Appetite, No O ther HEENT: No Head Aches, No Visual Changes, No Eye Pain, No Ear Pain, No Dys phasia, No Sinus Congestion, No Post Nasal Drip, No Sore Throat, No Other Pulmonary: No Dyspnea, No Cough, No Pleuritic Chest Pain, No Other Cardiovascular: No: Chest Pain, Palpitations, Orthopnea, Paroxysmal Noc. Dyspnea, Edema, Lt Headedness, Other Objective-Cardiology Exam Last Set of Vital Signs Vital Signs 06/27/19 00:15 Temp 36.4 Pulse 87 Resp 20 B/P (MAP) 149/80 (103) Pulse Ox 96 O2 Delivery Room Air Capillary Refill : Less Than 3 Seconds I&O Intake and Output 06/27/19 00:00 Intake Total 4130 ml Balance 4130 ml Intake Oral 1870 ml IV Total 2260 ml # Voids 12 # Bowel Movements 6 General: Alert, Oriented X3, Cooperative HEENT: Atraumatic, PERRLA Neck: Supple, No JVD, No Thyromegaly Lungs: Clear to Auscultation, Normal Air Movement Heart: Regular Rate, Normal S1, Normal S2, No Murmurs Abdomen: Normal Bowel Sounds, Soft, No Tenderness, No Hepatosplenomegaly, No Masses Extremities: No Clubbing, No Cyanosis, No Edema, Normal Pulses, No Tenderness/Swelling Skin: No Rashes, No Breakdown, No Significant Lesion Neuro: Normal Gait, Normal Speech, Strength at 5/5 X4 Ext, Normal Tone, Sensation Intact Psych/Mental Status: Mental Status NL, Mood NL Results Lab Laboratory Tests 06/27/19 04:46 A/P-Cardiology Admission Diagnosis Acute pancreatitis Paroxysmal atrial fibrillation Hypertension Acute cholecystitis Assessment/Plan Acute pancreatitis, recurrent, known to have history of gallstone pancreatitis, improving. Feeling better and her amylase and lipase better. Continue to monitor Paroxysmal atrial fibrillation, multiple episodes of atrial fibrillation, back to sinus rhythm at this time. Planning to restart oral anticoagulation once her pancreatitis is stable ZENY was done on April 15, 2018 which showed dilated left atrium and left atrial appendage showed no clot or thrombus with trace mitral regurgitation normal left ventricular size and function. Continue to monitor Cardiac catheterization done in November 2012 reporting mild irregular to have the distal right coronary artery otherwise no significant obstructive disease. Most recent stress test done April 2018 revealed no ischemia or infarct. Continue to monitor. [id number] score is 2, yearly risk of stroke without oral anticoagulation is 2.2 percent. Discussed the possibility of having closure device. Seen by Dr. Seymour, recommended conservative management at this point, continue to hold Eliquis for now and monitor Hx of GI bleed- patient has had AVM clipped in February 2014 by GI in [place]. History of premature ventricular contractions, premature atrial contractions, and palpitations, maintained on Toprol XL Hypertension, controlled, continue to monitor blood pressure Intolerance to MELISSA inhibitor with cough. Mild bilateral carotid stenosis, ultrasound was done in November 2018, continue to monitor. Depression Obesity, status post gastric sleeve. Patient continues to lose weight Obstructive sleep apnea using C-PAP Clinical Quality Measures DVT/VTE Risk/Contraindication: Risk Factor Score Per Nursin RFS Level Per Nursing on Admit: 1=Low/No VTE PPX GLENNY GUTIERREZ MD Jun 27, 2019 07:49 POS
[2019-06-27] MEDS: PANTOPRAZOLE 40 MG (PROTONIX) VIAL IV SCH ×2 (09:10→21:04)
[2019-06-27] MEDS: meTOprolol SUCCINATE 100 MG (TOPROL XL) TAB PO SCH (09:10)
[2019-06-27] MEDS: SENNA W/DOCUSATE (SENOKOT S) TABLET PO SCH (09:11)
--- NOTE | 2019-06-27 10:05 | Diagnostic Imaging Report ---
INDICATION: Dyspnea COMPARISON: 06/26/2019 TECHNIQUE: Single frontal radiograph of the chest dated 06/27/2019. FINDINGS: shelter monitor device is again identified overlying the left upper abdomen/left lower chest. The cardiac silhouette is stable. No significant pulmonary vascular congestion. Tortuosity of the descending thoracic aorta. Very minimal right basilar opacities. Otherwise, lungs appear clear. No significant pleural effusion. No pneumothorax. No acute osseous abnormality. IMPRESSION: Very minimal right basilar atelectasis and/or pneumonitis. Otherwise, similar exam. Dictated by: Dictated on workstation # [id number]
[2019-06-27] MEDS ORDERED: ONDANSETRON 4 MG/2 ML (SDV) Z0FRAN ONE (10:12)
[2019-06-27] MEDS ORDERED: proPOfol 200 MG/20 ML (DIPRIVAN) VIAL IV ONE (10:12)
[2019-06-27] MEDS ORDERED: MIDAZOLAM 2 MG/2 ML (VERSED) VIAL ONE (10:12)
[2019-06-27] MEDS ORDERED: LIDOCAINE PF 2% 5 ML (XYLOCAINE) VIAL ONE (10:12)
[2019-06-27] MEDS ORDERED: fentaNYL INJECTION 100 MCG/2 ML AMP ONE (10:12)
[2019-06-27] MEDS ORDERED: DEXAMETHASONE 10 MG/ML (DECADRON) 1 ML VIAL ONE (10:12)
[2019-06-27] MEDS ORDERED: GLYCOPYRROLATE 0.2 MG/ML (ROBINUL) 2 ML VIAL ONE (10:13)
[2019-06-27] MEDS ORDERED: NEOSTIGMINE 3 MG/3 ML VIAL ONE (10:13)
[2019-06-27] MEDS ORDERED: SEVOFLURANE (ULTANE) 15 ML INHAL SOLN ONE (10:13)
[2019-06-27] MEDS ORDERED: ROCURONIUM 10 MG/ML 5 ML SYRINGE IV ONE (10:13)
[2019-06-27] MEDS ORDERED: BUP/EPI 0.5% 1:200,000 (SENSORCAINE) 30 ML VIAL ONE (10:43)
--- NOTE | 2019-06-27 10:44 | NUR ---
Pt is Judaism. Offered prayer, active listening and compassionate presence in preparation for upcoming surgery.
--- NOTE | 2019-06-27 10:50 | Progress Note - Hospitalist ---
Subjective HPI/CC On Admission Date Seen by Provider: Jun 27, 2019 Time Seen by Provider: 10:15 The patient is a 63-year-old white female known to me who initially presented with nausea and right upper quadrant abdominal pain. She was noted to have cholecystitis which resolved now. Surgery been recommended that she was trying to put it off. She did relatively well with a few mild attacks since that time until Wednesday when she had a more significant attack with nausea and vomiting. It lasted for several hours she had another mild attack on and a more significant one on Wednesday with persistence epigastric and right upper quadrant pain more intense while she was in [facility]. She presented to the emergency room there where her lipase level was elevated and other labs were relatively unremarkable. She preferred to be under surgeon's care understandably and presented to our hospital for direct admission and treatment of presumed gallstone related pancreatitis. She has no other significant risk factors for pancreatitis with occasional social alcohol consumption. She had no past history of pancreatitis or known common duct obstruction. Subjective/Events-last exam Patient reports she's feeling much better denies abdominal pain tolerating clear liquids. She is scheduled for laparoscopic cholecystectomy later this morning. She denies night sweats chills fever or cough. She had recurrence of atrial fibrillation sometime Wednesday late morning. She received diltiazem and believes that she converted back to sinus rhythm around 11 p.m. Wednesday evening. She states that she can tell and she hears an irregular heartbeat in her ear when she is in atrial fibrillation. She's had no chest discomfort or shortness of breath and is back on oral beta agustín therapy. I did not see any significant tachycardia recorded while she was in atrial fibrillation. Objective Exam Vital Signs Vital Signs Date Time Temp Pulse Resp B/P (MAP) Pulse Ox O2 Delivery O2 Flow Rate FiO2 06/27/19 07:55 36.6 74 16 165/81 (109) 95 Room Air Capillary Refill : Less Than 3 Seconds General Appearance: No Apparent Distress, WD/WN Respiratory: Chest Non Tender, Lungs Clear, Normal Breath Sounds, No Accessory Muscle Use, No Respiratory Distress Cardiovascular: Regular Rate, Rhythm, No Edema, No Gallop, No JVD, No Murmur, Normal Peripheral Pulses Gastrointestinal: Normal Bowel Sounds, No Organomegaly, No Pulsatile Mass, Non Tender, Soft Extremity: Normal Inspection, Normal Range of Motion, Non Tender, No Calf Tenderness, No Pedal Edema Results/Procedures Lab Laboratory Tests 06/27/19 04:46 Patient resulted labs reviewed. Assessment/Plan Assessment and Plan Assess & Plan/Chief Complaint A/P 1. Acute pancreatitis presumably gallstone related resolving pancreatic enzymes nearly back to normal with normal liver function studies. No medical contraindications to receding with planned laparoscopic cholecystectomy later this morning. 2. Paroxysmal atrial fibrillation with recurrence now back in sinus rhythm no recorded rapid ventricular response while in atrial fibrillation. Continue oral beta agustín therapy and defer resumption of Multaq and to Dr. Gayle. 3. Chest x-ray reveals small amount of atelectasis in the right lung base no evidence for pneumonia in today's physical examination was unremarkable with no pulmonary auscultatory abnormalities noted with careful attention to the right lower lobe. Clinical Quality Measures DVT/VTE Risk/Contraindication: Risk Factor Score Per Nursin RFS Level Per Nursing on Admit: 1=Low/No VTE PPX UBALDO HEIN MD Jun 27, 2019 10:50 POS
--- NOTE | 2019-06-27 11:06 | Progress Note-Pre Operative ---
Pre-Operative Progress Note H&P Reviewed The H&P was reviewed, patient examined and no changes noted. Date Seen by Provider: Jun 27, 2019 Time Seen by Provider: 10:00 Date H&P Reviewed: Jun 27, 2019 Time H&P Reviewed: 10:00 Pre-Operative Diagnosis: acute calculous cholecystitis XAVI STEWART MD Jun 27, 2019 11:06 POS
--- NOTE | 2019-06-27 11:25 | NUR ---
PT TAKEN OFF FLOOR VIA PT BED FOR PROCEDURE AT THIS TIME. AT SIDE.
[2019-06-27] MEDS ORDERED: ceFAZolin INJECTION 2,000 MG ONE (12:16)
[2019-06-27] MEDS ORDERED: ceFAZolin INJECTION 1,000 MG VIAL IV NR (12:16)
--- NOTE | 2019-06-27 12:44 | Progress Note-Post Operative ---
Post-Operative Progess Note Surgeon (s)/Yarn Man (s) Surgeon XAVI STEWART MD Yarn Man: steve gonzalez [employer] Pre-Operative Diagnosis acute calculous cholecystitis Post-Operative Diagnosis same Procedure & Operative Findings Date of Procedure 06/27/19 Procedure Performed/Findings laparoscopic cholecystectomy Anesthesia Type get Estimated Blood Loss Estimated blood loss (mL): minimal Specimens/Packing Specimens Removed gallbladder XAVI STEWART MD Jun 27, 2019 12:44 POS
[2019-06-27] MEDS ORDERED: HYDR-34 PO (12:50)
--- NOTE | 2019-06-27 12:51 | Discharge Inst-Surgical ---
D/C Lap Instructions-TERRY New, Converted, or Re-Newed RX: RX on Chart Follow Up Appt in 2 weeks Activity as tolerated No driving for 24 hours No driving while on pain medications Incentive Spirometry use every 2 hours while awake Regular Diet Symptoms to Report: Fever over 101 degree F, Nausea/Vomiting Infection Signs and Symptoms to report: Increased redness, Foul odor of wound, Increased drainage Bathing instructions: May shower Operative Area Clean/Dry; Keep incision clean/dry If any problems/questions: Contact your physician or go to Emergency Room XAVI STEWART MD Jun 27, 2019 12:51 POS
[2019-06-27] MEDS ORDERED: ONDANSETRON 4 MG/2 ML (SDV) Z0FRAN IVP PRN (13:00)
[2019-06-27] MEDS ORDERED: HYDROmorphone 2 MG/ML VIAL (DILAUDID) IV ONE (13:00)
[2019-06-27] MEDS ORDERED: PROMETHAZINE INJ 25 MG/ML (PHENERGAN) AMP IVP ONE (13:00)
[2019-06-27] MEDS ORDERED: MEPERIDINE (DEMEROL) INJ 50 MG/ML IVP ONE (13:00)
--- NOTE | 2019-06-27 13:45 | NUR ---
PT BACK TO ROOM AT THIS TIME. REPORT RECEIVED FROM HORTENSIA GARZA AT BEDSIDE. PT RESTING WITH EYES CLOSED, RATING PAIN 5/10 IN ABDOMEN. X3 LAP SITES INTACT. ICE PACK IN PLACE TO ABDOMEN. FLUIDS INFUSING INTO LEFT FA. DILAUDID MOSAIC TECHNICIAN AVAILABLE FOR PT USE. PT DENIES ANY NEEDS AT THIS TIME. AT BEDSIDE.
[2019-06-27] MEDS ORDERED: HYDROmorphone 2 MG/ML VIAL (DILAUDID) IV PRN (19:15)
[2019-06-27] MEDS: oxyCODONE 5 MG/5 ML ORAL SOLN (roxiCODONE) 5 ML UDC PO PRN (20:00)
--- NOTE | 2019-06-27 20:13 | OPERATIVE REPORT ---
DATE OF SERVICE: 06/27/2019 ATTENDING PRIMARY CARE PHYSICIAN: Brian Joseph MD PREOPERATIVE DIAGNOSIS: Acute calculous cholecystitis with previous gallstone pancreatitis. POSTOPERATIVE DIAGNOSIS: Acute calculous cholecystitis with previous gallstone pancreatitis. PROCEDURE: Laparoscopic cholecystectomy. SURGEON: Xavi Stewart MD HEALTH MANAGEMENT CONSULTANT: Genaro Ybarra APRN ANESTHESIA: General endotracheal. ESTIMATED BLOOD LOSS: Minimal. FINDINGS: Distended gallbladder with multiple gallstones. DISPOSITION: The patient tolerated the procedure well. INDICATIONS: The patient is a 63-year-old female known to us. 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 She had remembered having darker stools for several weeks beforehand and we did a repeat EGD on her on 03/11 which did not show any recurrent bleeding. She has been on Protonix from a standpoint of peptic ulcer disease as well as gastroesophageal reflux disease. She is also status post gastric sleeve resection by us in 2016. She has had crampy abdominal pain, which we knew about and this was worked up and she was found to have gallstones; however, she wanted to wait to have surgery. She was in [place], [place] and developed pain in the right upper abdominal quadrant as well as in the epigastric region, was also found to be in atrial fibrillation. A CT scan was performed, which did show ductal dilatation and laboratory work did show elevation of total bilirubin as well as pancreatic enzymes consistent with a cholelithiasis. She was transferred to [facility] to be closer to home and for further definitive therapy. Since being hydrated on antibiotics and bowel rest, her liver function enzymes as well as pancreatic enzymes have normalized. She does not have any peritoneal signs as well. DESCRIPTION OF PROCEDURE: The patient was brought to the operating room, laid supine on the table. After adequate IV pain and sedative medications and general endotracheal intubation, the abdomen was prepped and draped in standard surgical fashion. A 0.5% Marcaine with epinephrine was then used to anesthetize the overlying skin in the left upper abdominal quadrant and a transverse skin incision made using a 15 blade. An 0 silk suture was applied to the medial aspect of the incision for retraction and a Veress needle was inserted with a low opening pressure of 0 mmHg. The abdomen was then insufflated to 15 mmHg pressure. The Veress needle was removed and a 5 mm Xcel trocar placed followed by a 5 mm 45-degree angle laparoscope visualizing the peritoneal cavity. A 4-quadrant abdominal exploration was performed. There was a distended and dilated gallbladder with mild gallbladder wall thickening. Liver appeared normal. Under direct visualization, we then proceeded to place a supraumbilical 10 mm port after the skin and peritoneal lining were anesthetized using 0.5% Marcaine with epinephrine and a transverse skin incision was made using a 15 blade. In a similar fashion, a right upper abdominal quadrant 5 mm port was placed. The patient was then placed in reverse Trendelenburg position as well as plane right side up, left side down and the fundus of the gallbladder was then retracted anteriorly and superiorly. The hepatoduodenal ligament was then opened using blunt dissection as well as electrocautery on the hook instrument. The entire critical view of safety was identified including the triangle of Calot as well as the cystic duct and artery is only two structures going into the gallbladder as well as the cystic plate behind the proximal gallbladder. A timeout was then taken and the cystic duct and artery were then clipped proximally and distally and cut with EndoShears. The gallbladder was then dissected off the liver bed using cautery on the hook instrument with visualization of good hemostasis as well as no leaking ducts of Luschka. The gallbladder was removed through the 10 mm port site using an EndoCatch bag. The 10 mm port site fascia and peritoneum were then closed under direct visualization using a José-Mary Jane device and 0 Vicryl suture. The abdomen was desufflated and the remaining ports were removed. All skin incisions were closed using 4-0 Monocryl running subcuticular sutures. Wounds were then cleaned and covered with Dermabond. The patient tolerated the procedure well. We will start clear liquids and advance as tolerated to a low fat diet as well as pain control with IV and then transition to oral pain medication. We will also get laboratory work including liver function enzymes as well as amylase and lipase and if these have normalized and she is tolerating a diet, has adequate pain control and ambulating well, we will discharge her home. Job ID: [id number] DocumentID: [id number] Dictated Date: 06/27/2019 12:57:33 Autopsy Pathologist Date: 06/27/2019 20:12:48 Dictated By: XAVI STEWART MD
[2019-06-27] MEDS: POLYETHYLENE GLYCOL 17 GM (MIRALAX) PACK PO SCH (21:04)
[2019-06-28] VITALS: BP 119/72
[2019-06-28] MEDS: 1/2 NS W/KCL 20 MEQ/L 1,000 ML IV SCH (01:53)
[2019-06-28 04:43] VITALS: BP 144/81
[2019-06-28 06:37] LABS: BASOPHILS % (AUTO) 0 % (0-10); EOSINOPHILS % (AUTO) 0 % (0-10); HEMATOCRIT 35 % (35-52); HEMOGLOBIN 11.5 G/DL (11.5-16.0); LYMPHOCYTES # (AUTO) 0.7 X 10^3 (1.0-4.0); LYMPHOCYTES % (AUTO) 7 % (12-44); MEAN CORPUSCULAR HEMOGLOBIN 31 PG (25-34); MEAN CORPUSCULAR HGB CONC 33 G/DL (32-36); MEAN CORPUSCULAR VOLUME 95 FL (80-99); MEAN PLATELET VOLUME 9.9 FL (7.4-10.4); MONOCYTES # (AUTO) 0.7 X 10^3 (0.0-1.0); MONOCYTES % (AUTO) 7 % (0-12); NEUTROPHILS # (AUTO) 8.4 X 10^3 (1.8-7.8); NEUTROPHILS % (AUTO) 85 % (42-75); PLATELET COUNT 217 10^3/uL (130-400); RED CELL DISTRIBUTION WIDTH 12.4 % (10.0-14.5); WHITE BLOOD COUNT 9.9 10^3/uL (4.3-11.0)
[2019-06-28] MEDS: PIPERACILLIN/TAZOBACTAM (BULK) 4.5 GM in NS (IVPB) 100 ML IV SCH (06:53)
[2019-06-28] MEDS: VENlafaxine XR 75 MG (EFFEXOR XR) CAP PO SCH (06:53)
[2019-06-28 07:00] LABS: ALANINE AMINOTRANSFERASE 32 U/L (0-55); ALBUMIN 3.5 GM/DL (3.2-4.5); ALKALINE PHOSPHATASE 75 U/L (40-136); AMYLASE 67 U/L (25-125); BILIRUBIN,TOTAL 0.3 MG/DL (0.1-1.0); BUN/CREATININE RATIO 6; CARBON DIOXIDE 22 MMOL/L (21-32); CHLORIDE 108 MMOL/L (98-107); CREATININE SERUM 0.84 MG/DL (0.60-1.30); GFR ESTIMATED > 60; GLUCOSE 119 MG/DL (70-105); LIPASE 24 U/L (8-78); MAGNESIUM 1.7 MG/DL (1.6-2.4); PHOSPHORUS 2.8 MG/DL (2.3-4.7); POTASSIUM 4.2 MMOL/L (3.6-5.0); SODIUM 139 MMOL/L (135-145); TOTAL PROTEIN 5.9 GM/DL (6.4-8.2)
[2019-06-28] MEDS: POTASSIUM CL 10MEQ/50ML IVPB 50 ML IV SCH (07:16)
[2019-06-28] MEDS: KCL 20 MEQ TAB (K-DUR) PO SCH (07:16)
--- NOTE | 2019-06-28 07:17 | Diagnostic Imaging Report ---
INDICATION: Shortness of breath. COMPARISON: 06/27/2019. FINDINGS: Single view of the chest demonstrates clear lungs bilaterally. Heart is prominent but stable. There is no pneumothorax. Osseous structures are normal. IMPRESSION: No acute cardiopulmonary findings. Dictated by: Dictated on workstation # [id number]
[2019-06-28] MEDS: MAGNESIUM 1 GM/100 ML IVPB 100 ML IV SCH ×3 (07:34→11:27)
[2019-06-28 08:00] VITALS: BP 152/70
[2019-06-28] MEDS: PANTOPRAZOLE 40 MG (PROTONIX) VIAL IV SCH (08:09)
[2019-06-28] MEDS: meTOprolol SUCCINATE 100 MG (TOPROL XL) TAB PO SCH (08:10)
[2019-06-28] MEDS: SENNA W/DOCUSATE (SENOKOT S) TABLET PO SCH ×2 (08:10→09:00)
--- NOTE | 2019-06-28 10:32 | Anesthesia-General Post-Op ---
General Patient Condition Mental Status/LOC: Same as Preop Cardiovascular: Satisfactory Nausea/Vomiting: Absent Respiratory: Satisfactory Pain: Controlled Complications: Absent Post Op Complications Complications None Follow Up Care/Instructions Patient Instructions None needed. Anesthesia/Patient Condition Patient Condition Patient is doing well, no complaints, stable vital signs, no apparent adverse anesthesia problems. No complications reported per nursing. DEVIKA TOLLIVER CRNA Jun 28, 2019 10:32 POS
--- NOTE | 2019-06-28 11:11 | Cardiology Progress Note ---
Subjective Date Seen by Provider: Jun 28, 2019 Time Seen by Provider: 11:06 Subjective/Events-last exam Patient is sitting up in bed. Denies any abdominal pain. Denies chest pain or dyspnea. Review of Systems General: No Chills, No Night Sweats, No Fatigue, No Malaise, No Appetite, No Other HEENT: No Head Aches, No Visual Changes, No Eye Pain, No Ear Pain, No Dyspha jayde, No Sinus Congestion, No Post Nasal Drip, No Sore Throat, No Other Pulmonary: No Dyspnea, No Cough, No Pleuritic Chest Pain, No Other Cardiovascular: No: Chest Pain, Palpitations, Orthopnea, Paroxysmal Noc. Dyspnea, Edema, Lt Headedness, Other Objective-Cardiology Exam Last Set of Vital Signs Vital Signs 06/27/19 06/28/19 06/28/19 13:20 08:00 09:00 Temp 35.6 Pulse 60 Resp 16 B/P (MAP) 152/70 (97) Pulse Ox 96 O2 Delivery Room Air O2 Flow Rate 3 Capillary Refill : Less Than 3 Seconds I&O Intake and Output 06/28/19 00:00 Intake Total 200 ml Balance 200 ml Intake Oral 200 ml # Voids 11 # Bowel Movements 3 General: Alert, Oriented X3, Cooperative HEENT: Atraumatic, PERRLA Neck: Supple, No JVD, No Thyromegaly Lungs: Clear to Auscultation, Normal Air Movement Heart: Regular Rate, Normal S1, Normal S2, No Murmurs Abdomen: Normal Bowel Sounds, Soft, No Tenderness, No Hepatosplenomegaly, No Masses Extremities: No Clubbing, No Cyanosis, No Edema, Normal Pulses, No Tenderness/Swelling Skin: No Rashes, No Breakdown, No Significant Lesion Neuro: Normal Gait, Normal Speech, Strength at 5/5 X4 Ext, Normal Tone, Sensation Intact Psych/Mental Status: Mental Status NL, Mood NL Results Lab Laboratory Tests 06/28/19 06:00 A/P-Cardiology Admission Diagnosis Acute pancreatitis Paroxysmal atrial fibrillation Hypertension Acute cholecystitis Assessment/Plan Acute pancreatitis, cholecycstitis, recurrent, known to have history of gallstone pancreatitis. S/P lap cholecystectomy with Dr. Servin yesterday. Paroxysmal atrial fibrillation, multiple episodes of atrial fibrillation, back to sinus rhythm at this time. I will restart Multaq. Planning to restart oral a nticoagulation tomorrow. ZENY was done on April 15, 2018 which showed dilated left atrium and left atrial appendage showed no clot or thrombus with trace mitral regurgitation normal left ventricular size and function. Continue to monitor Cardiac catheterization done in November 2012 reporting mild irregular to have the distal right coronary artery otherwise no significant obstructive disease. Most recent stress test done April 2018 revealed no ischemia or infarct. Continue to monitor. [id number] score is 2, yearly risk of stroke without oral anticoagulation is 2.2 percent. Discussed the possibility of having closure device. Seen by Dr. Seymour, recommended conservative management at this point, continue to hold Eliquis for now and monitor Hx of GI bleed- patient has had AVM clipped in February 2014 by GI in [place]. History of premature ventricular contractions, premature atrial contractions, and palpitations, maintained on Toprol XL Hypertension, mildly elevated today, continue to monitor. Intolerance to MELISSA inhibitor with cough. Mild bilateral carotid stenosis, ultrasound was done in November 2018, continue to monitor. Depression, managed by PCP Obesity, status post gastric sleeve. Patient continues to lose weight Obstructive sleep apnea using C-PAP Patient was seen and evaluated with Melisa, examination performed, management plan was discussed, agree with the current scribed note, I made few changes to the note using Italic font Patient is sitting in bed, feeling better, mild pain at the incision site. Amylase and lipase are back to normal No chest pain, lungs were clear to auscultation, heart is regular I will restart Multaq and planning to restart oral anticoagulation tomorrow Clinical Quality Measures DVT/VTE Risk/Contraindication: Risk Factor Score Per Nursin RFS Level Per Nursing on Admit: 1=Low/No VTE PPX Supervisory-Addendum Brief Supervisory Addendum Participated in pt care: history, MDM, physical Personally performed: exam, history, MDM Care discussed with: MELISA MIJARES Jun 28, 2019 11:11 GLENNY MUJICA MD Jun 28, 2019 14:32 POS
[2019-06-28] MEDS: oxyCODONE 5 MG/5 ML ORAL SOLN (roxiCODONE) 5 ML UDC PO PRN (11:27)
--- NOTE | 2019-06-28 14:10 | Progress Note ---
Subjective Date Seen by a Provider: Jun 28, 2019 Time Seen by a Provider: 14:00 Subjective/Events-last exam doing well. tolerating diet. labs normalized. pain controlled. Objective Exam Vital Signs Date Time Temp Pulse Resp B/P (MAP) Pulse Ox O2 Delivery O2 Flow Rate FiO2 06/28/19 09:00 96 Room Air 06/28/19 08:00 35.6 60 16 152/70 (97) 96 Room Air 06/28/19 04:43 35.1 65 20 144/81 (102) 98 Room Air 06/28/19 00:00 36.6 70 18 119/72 (88) 93 Room Air 06/27/19 23:33 Room Air 06/27/19 21:00 95 Room Air 06/27/19 20:00 36.9 61 16 122/81 (95) 95 Room Air 06/27/19 15:43 36.7 67 16 128/80 (96) 93 Room Air I & O 06/28/19 07:00 Intake Total 600 ml Balance 600 ml Capillary Refill : Less Than 3 SecondsLess Than 3 Seconds General Appearance: No Apparent Distress HEENT: PERRL/EOMI Neck: Full Range of Motion Respiratory: Chest Non Tender, Lungs Clear, Normal Breath Sounds Cardiovascular: Regular Rate, Rhythm Gastrointestinal: normal bowel sounds, soft, tenderness Extremity: Normal Capillary Refill Neurologic/Psychiatric: Alert, Oriented x3 Skin: Normal Color Lymphatic: No Adenopathy Results Lab Laboratory Tests 06/28/19 06:00: White Blood Count 9.9, Red Blood Count 3.66L, Hemoglobin 11.5, Hematocrit 35, Mean Corpuscular Volume 95, Mean Corpuscular Hemoglobin 31, Mean Corpuscular Hemoglobin Concent 33, Red Cell Distribution Width 12.4, Platelet Count 217, Mean Platelet Volume 9.9, Neutrophils (%) (Auto) 85H, Lymphocytes (%) (Auto) 7L, Monocytes (%) (Auto) 7, Eosinophils (%) (Auto) 0, Basophils (%) (Auto) 0, Neutrophils # (Auto) 8.4H, Lymphocytes # (Auto) 0.7L, Monocytes # (Auto) 0.7, Eosinophils # (Auto) 0.0, Basophils # (Auto) 0.0, Sodium Level 139, Potassium Level 4.2, Chloride Level 108H, Carbon Dioxide Level 22, Anion Gap 9, Blood Urea Nitrogen 5L, Creatinine 0.84, Estimat Glomerular Filtration Rate > 60, BUN/Creatinine Ratio 6, Glucose Level 119H, Calcium Level 9.0, Corrected Calcium 9.4, Phosphorus Level 2.8, Magnesium Level 1.7, Total Bilirubin 0.3, Aspartate Amino Transf (AST/SGOT) 40H, Alanine Aminotransferase (ALT/SGPT) 32, Alkaline Phosphatase 75, Total Protein 5.9L, Albumin 3.5, Amylase Level 67, Lipase 24 Microbiology 06/24/19 MRSA Screen - Final, Complete MRSA not isolated Assessment/Plan Assessment/Plan Assess & Plan/Chief Complaint acute calculous cholecystitis with previous gallstone pancreatitis s/p lap guillaume. doing well. tolerating diet and pain controlled. labs normalized. increase ambulation. home soon. Clinical Quality Measures DVT/VTE Risk/Contraindication: Risk Factor Score Per Nursin RFS Level Per Nursing on Admit: 1=Low/No VTE PPX XAVI STEWART MD Jun 28, 2019 14:10 POS
[2019-06-28] MEDS ORDERED: DRONEDARONE TABLET 400 MG TABLET PO SCH (21:00)
== END 2019-06-28 15:08 | disposition home or self-care (01) | DRG 417 ==
LOC: ICU 16:08 → UNDOADMOB 16:08 → 4TH 06-26 16:40 → ICU 06-26 16:40 → 4TH 06-26 16:40 → UNDODISOB 06-28 15:08 → EDSTATUS 06-29 15:39
PROVIDERS: ADMIT Surgery; ATTEND Surgery
PROC: 0FT44ZZ Resection of Gallbladder, Percutaneous Endoscopic Approach (ICD-10-PCS; principal; 2019-06-27 11:51)
DX: K80.00 Calculus of gallbladder with acute cholecystitis without obstruction (principal); K85.90 Acute pancreatitis without necrosis or infection, unspecified; J98.11 Atelectasis; K21.9 Gastro-esophageal reflux disease without esophagitis; K27.9 Peptic ulcer, site unspecified, unspecified as acute or chronic, without hemorrhage or perforation; I48.0 Paroxysmal atrial fibrillation; I10 Essential (primary) hypertension; I65.23 Occlusion and stenosis of bilateral carotid arteries; F32.9 Major depressive disorder, single episode, unspecified; E66.9 Obesity, unspecified; G47.33 Obstructive sleep apnea (adult) (pediatric); I49.3 Ventricular premature depolarization; I49.1 Atrial premature depolarization; R00.2 Palpitations; Z68.28 Body mass index [BMI] 28.0-28.9, adult; Z98.84 Bariatric surgery status
CPT/HCPCS: 36415; 71045; 71260; 74178; 80048; 80053; 82150; 83690; 83735; 84100; 85025; 87081; 93005; 94640

== ENCOUNTER → 2019-07-13 | Outpatient (CLI) | payer MEDICARE, OTHER ==
[~2019-07-13] MED LIST changes: +ACET-1783 PO; +METO-395 PO; +PANT40TA3 PO; +VENL75CA PO
[2019-07-13 15:43] LABS: BILIRUBIN,URINE NEGATIVE (NEGATIVE); CLARITY,URINE CLEAR; COLOR,URINE YELLOW; GLUCOSE, URINE (UA) NEGATIVE (NEGATIVE); KETONES,URINE NEGATIVE (NEGATIVE); LEUKOCYTE ESTERASE ,URINE 1+ (NEGATIVE); NITRITE,URINE NEGATIVE (NEGATIVE); PROTEIN,URINE NEGATIVE (NEGATIVE)
[2019-07-13 16:01] LABS: BACTERIA,URINE MODERATE /HPF; SQUAMOUS EPITHELIAL CELL,UR RARE /HPF; WBC,URINE 50-100 /HPF
== END ==
LOC: LAB 15:14
PROVIDERS: ATTEND Internal Medicine
DX: R35.0 Frequency of micturition (principal)
CPT/HCPCS: 81000; 87077; 87088; 87186

== ENCOUNTER → 2019-07-20 | Outpatient (CLI) | payer MEDICARE, OTHER ==
--- NOTE | 2019-07-20 14:34 | Diagnostic Imaging Report ---
INDICATION: Six-month follow-up right breast density. CORRELATION is made with prior exams from 04/22/2018 and 01/20/2017 as well as 11/28/2018 and 05/25/2018. The density noted in the central right breast on the MLO view at the nipple line appears to be fairly similar. There are benign calcified lesion. No new mass is seen. There are circumscribed nodules in both breasts which have been stable and are benign. Cardiac monitoring device overlies the left heart. Axillae are unremarkable. IMPRESSION: BI-RADS Category 3. Stable bilateral mammograms. Density in the central right breast appears to be fairly stable and is only seen on the MLO view. This appears to resolve on the ML view and most likely represents fibroglandular tissue. Even so, continued follow-up at 6 months is recommended to confirm stability. This now shows approximately one year of stability. Dictated by: Dictated on workstation # [id number]
== END ==
LOC: RAD 13:37
PROVIDERS: ATTEND Internal Medicine
DX: R92.2 Inconclusive mammogram (principal)
CPT/HCPCS: 77066

== ENCOUNTER → 2020-06-27 | Outpatient (CLI) | payer MEDICARE, OTHER ==
[~2020-06-27] MED LIST changes: -METO-395 PO; +MTP100TCR PO; -PANT40TA3 PO; +PANT40TA52 PO
--- NOTE | 2020-06-27 14:57 | Diagnostic Imaging Report ---
PA and lateral chest at 2:36. Indication: Tachycardia The heart size is within normal limits and the heart does seem less prominent than noted on the prior exam of 06/28/2019. The tortuous descending thoracic aorta seen on the prior study and the loop recorder device are again evident and unchanged. The lungs are clear. There is no sign of failure, pneumonia or a pleural effusion to indicate an acute abnormality. The mediastinum is not widened. The osseous structures are intact. Impression: There is no evidence for active disease. Dictated by: Dictated on workstation # [id number]
== END ==
LOC: RAD 14:17
PROVIDERS: ATTEND Internal Medicine Cardiovascular Disease
DX: I48.0 Paroxysmal atrial fibrillation (principal); I10 Essential (primary) hypertension; I49.3 Ventricular premature depolarization
CPT/HCPCS: 71046

== ENCOUNTER 2021-02-18 05:48 | Outpatient (CLI) | payer MEDICARE, OTHER ==
[~2021-02-18] VITALS: Ht 162.6 cm; Wt 80.8 kg
[~2021-02-18 05:48] MED LIST changes: -ACET-1783 PO; +ACET-2870 PO; +DRON400T6 PO
[2021-02-18] MEDS ORDERED: TURM500C4 PO (13:55)
[2021-02-18] MEDS ORDERED: APIX5TAB PO (13:55)
[2021-02-18] MEDS ORDERED: CYCL10TA9 PO (13:55)
[2021-02-18] MEDS ORDERED: CHOL-34 PO (13:55)
[2021-02-18] MEDS ORDERED: VENL75CA93 PO (13:55)
== END 2021-02-18 14:02 | disposition home or self-care (01) ==
LOC: PREOP 05:48
PROVIDERS: ATTEND Surgery
DX: Z01.818 Encounter for other preprocedural examination (principal)

== ENCOUNTER 2021-02-20 08:07 | Day surgery (SDC) | payer MEDICARE, OTHER ==
[~2021-02-20] VITALS: Ht 162.6 cm; Wt 80.8 kg
[2021-02-20] VITALS (9 sets, daily range): BP systolic 130–144; BP diastolic 76–82
[~2021-02-20 08:07] MED LIST changes: +CHOL-34 PO; +CYCL10TA9 PO; +LACTATED RINGERS 1,000 ML IV PRN; +TURM500C4 PO; +VENL75CA93 PO; +ceFAZolin 2 GM IV Premixed 50 ML IV ONE
[2021-02-20] MEDS ORDERED: LIDOCAINE PF 2% 5 ML (XYLOCAINE) VIAL ONE (08:57)
[2021-02-20] MEDS ORDERED: proPOfol 200 MG/20 ML (DIPRIVAN) VIAL IV ONE (08:57)
[2021-02-20] MEDS ORDERED: ONDANSETRON 4 MG/2 ML (SDV) Z0FRAN ONE (08:57)
[2021-02-20] MEDS ORDERED: fentaNYL INJ 100 MCG/2 ML AMP ONE (08:57)
[2021-02-20] MEDS ORDERED: MIDAZOLAM 2 MG/2 ML (VERSED) VIAL ONE (08:58)
--- NOTE | 2021-02-20 09:05 | Progress Note-Pre Operative ---
Pre-Operative Progress Note H&P Reviewed The H&P was reviewed, patient examined and no changes noted. Date Seen by Provider: Feb 20, 2021 Time Seen by Provider: 09:00 Date H&P Reviewed: Feb 20, 2021 Time H&P Reviewed: 08:55 Pre-Operative Diagnosis: Symptomatic large right hip hematoma DALLAS GONZALEZ APRN Feb 20, 2021 09:05
[2021-02-20] MEDS ORDERED: ACHD5005 PO (09:07)
--- NOTE | 2021-02-20 09:07 | Discharge Inst-Surgical ---
D/C Lap Instructions-KIDO Reconcile Patient Problems Problems Reviewed?: Yes New, Converted, or Re-Newed RX: RX on Chart Follow Up Appt in 2 weeks Activity as tolerated No driving for 24 hours No driving while on pain medications Incentive Spirometry use every 2 hours while awake Regular Diet Symptoms to Report: Fever over 101 degree F, Nausea/Vomiting Infection Signs and Symptoms to report: Increased redness, Foul odor of wound, Increased drainage Bathing instructions: May shower Operative Area Clean/Dry; Keep incision clean/dry If any problems/questions: Contact your physician or go to Emergency Room DALLAS GONZALEZ APRN Feb 20, 2021 09:07
[2021-02-20] MEDS ORDERED: ACETAMINOPHEN 325 MG TABLET PO PRN (09:15)
[2021-02-20] MEDS ORDERED: HYDROcodone/APAP 5 MG/325 MG (LORTAB) TAB PO ONE (09:15)
[2021-02-20] MEDS ORDERED: ONDANSETRON 4 MG/2 ML (SDV) Z0FRAN IVP PRN ×2 (09:15→11:00)
[2021-02-20] MEDS ORDERED: morphine INJ 10 MG/ML 1ML (SYR OR VIAL) IVP PRN (09:15)
[2021-02-20] MEDS ORDERED: LIDOCAINE/EPI 1%-1:100,000 (XYLOCAINE) 20ML ONE (09:27)
[2021-02-20] MEDS ORDERED: PHENYLEPHRINE 100 MCG/ML 10 ML (ANESTHESIA) SYR ONE (10:24)
--- NOTE | 2021-02-20 10:33 | Progress Note-Post Operative ---
Post-Operative Progess Note Surgeon (s)/Edge Stainer Machine (s) Surgeon XAVI STEWART MD Edge Stainer Machine: steve gonzalez ZONING ASSISTANT Pre-Operative Diagnosis HEMATOMA RIGHT HIP Post-Operative Diagnosis same, subcutaneous Procedure & Operative Findings Date of Procedure 02/20/21 Procedure Performed/Findings evacuation large right hip subcutaneous hematoma with drain placement. Anesthesia Type mac with local Estimated Blood Loss Estimated blood loss (mL): minimal Specimens/Packing Specimens Removed none XAVI STEWART MD Feb 20, 2021 10:33
[2021-02-20] MEDS ORDERED: HYDROmorphone 2 MG/ML VIAL (DILAUDID) IV ONE (11:00)
--- NOTE | 2021-02-20 15:00 | OPERATIVE REPORT ---
DATE OF SERVICE: 02/20/2021 ATTENDING PRIMARY CARE PHYSICIAN: Dr. Brian Joseph. PREOPERATIVE DIAGNOSIS: Symptomatic large right hip hematoma. POSTOPERATIVE DIAGNOSIS: Symptomatic large right hip hematoma with liquified as well as clotted hematoma with a cavity approximately 16 x 15 cm in size. PROCEDURE PERFORMED: Evacuation of right hip subcutaneous hematoma with drain placement. SURGEON: Xavi Stewart MD. SENIOR ENERGY CONSULTANT: Genaro Ybarra APRN. ANESTHESIA: General laryngeal mask airway with local. ESTIMATED BLOOD LOSS: Minimal. FINDINGS: A large hematoma with a volume of blood approximately 1250 mL. DISPOSITION: The patient tolerated the procedure well. INDICATIONS FOR PROCEDURE: The patient is a 65-year-old female with same level fall to the right hip. She reports some discomfort; however, not severe at that time. She reports that over time, she developed ecchymosis and then a significant amount of edema, which grew in size and it caused more pain. She is on Eliquis for history of atrial fibrillation. She had an ultrasound performed, which did show a large fluid collection approximately 16 x 12 cm in size consistent with a hematoma. DESCRIPTION OF PROCEDURE: The patient was brought to the operating room and laid supine on the table. After adequate IV pain and sedative medications and general laryngeal mask airway intubation, the hip was prepped and draped in a standard surgical fashion. A 0.5% Marcaine with epinephrine was used to anesthetize the overlying skin in the left lateral hip overlying the greater trochanter and a 15 blade was used to make an incision. A large partially liquified as well as clotted hematoma was identified with no purulence to indicate any infection. This was completely evacuated using suction as well as blunt dissection. No active bleeding was identified. A 1-inch Michele drain was placed into the hematoma cavity and sutured to the skin using 3-0 nylon interrupted sutures. Wound was then cleaned. The remainder of the skin was then closed using 3-0 nylon interrupted sutures. The dimensions of the abscess cavity were approximately 15 x 15 cm. The patient tolerated the procedure well. We will have her continue to place a gauze dressing on a b.i.d. basis to absorb any residual hematoma as well as a serous drainage and have her follow up in approximately one week to remove the drain. Job ID: [id number] DocumentID: [id number] Dictated Date: 02/20/2021 10:38:56 Principal Data Architect Date: 02/20/2021 14:59:14 Dictated By: XAVI STEWART MD
--- NOTE | 2021-02-24 07:31 | Anesthesia-General Post-Op ---
General Significant Intra-Op Events Notes POST OP COMPLETED 02/20 1200 Patient Condition Mental Status/LOC: Same as Preop Cardiovascular: Satisfactory Nausea/Vomiting: Absent Respiratory: Satisfactory Pain: Controlled Complications: Absent Post Op Complications Complications None Follow Up Care/Instructions Patient Instructions None needed. Anesthesia/Patient Condition Patient Condition Patient is doing well, no complaints, stable vital signs, no apparent adverse anesthesia problems. No complications reported per nursing. [place] [facility] [place]: Yes ALTA AGRAWAL CRNA Feb 24, 2021 07:31
== END 2021-02-20 13:00 | disposition home or self-care (01) ==
LOC: SDC 08:07
PROVIDERS: ATTEND Surgery
DX: S70.01XA Contusion of right hip, initial encounter (principal); I48.91 Unspecified atrial fibrillation; I10 Essential (primary) hypertension; K21.9 Gastro-esophageal reflux disease without esophagitis; F32.9 Major depressive disorder, single episode, unspecified; D64.9 Anemia, unspecified; I49.3 Ventricular premature depolarization; K27.9 Peptic ulcer, site unspecified, unspecified as acute or chronic, without hemorrhage or perforation; W18.30XA Fall on same level, unspecified, initial encounter; Z79.01 Long term (current) use of anticoagulants; Z79.899 Other long term (current) drug therapy; Z96.698 Presence of other orthopedic joint implants; Z98.890 Other specified postprocedural states
CPT/HCPCS: 87081